=== PATIENT | female | born 1940 | race Caucasian/White ===

== ENCOUNTER 2016-10-05 12:46 | Inpatient (IN) | payer OTHER, MEDICARE ==
[2016-10-05] MEDS ORDERED: ASPIRIN 81 MG CHEWABLE TABLETS PO ONE (13:01)
[2016-10-05] MEDS ORDERED: ASPIRIN 81 MG CHEWABLE TABLETS ONE (13:23)
[2016-10-05 13:34] LABS: BASOPHIL 0.4 % (0-2.0); EOSINOPHIL 0.4 % (0-4.5); MCH 29.8 pg (25.7-33.7); MCHC 32.6 g/dl (32.0-36.0); MEAN CELL VOLUME 91.5 fl (80-96); MEAN PLT VOLUME 8.4 fl (7.5-11.1); NEUTROPHILS 60.1 % (42.8-82.8); PLATELET COUNT 169 K/MM3 (134-434); RDW 13.1 % (11.6-15.6); WHITE BLOOD COUNT 3.5 K/mm3 (4.0-10.0)
--- NOTE | 2016-10-05 13:46 | PDOC ---
History of Present Illness - General History Source: Patient Exam Limitations: No Limitations - History of Present Illness Initial Comments: 10/05/16 13:55 The patient is a 75 year old female, with a significant past medical history of hypertriglyceridemia who presents to the emergency department with chest pain, dizziness, productive cough for the past week. She reports having a tightness and pressure in her chest that is constant. She reports having SOB with any exertion or with much activity. Patient was sent here by Dr. Mixon, PCP, after an abnormal EKG. She ranks her pain a 6/10 in pain intensity. She reports having a recently ECHO. She denies shortness of breath. She denies fever, chills , headache and dizziness. She denies nausea, vomit, diarrhea and constipation. Allergies: NKA Social history: Former smoker. PCP: CARDIO: <Joo Vences - Last Filed: 10/05/16 14:07> - General History Source: Patient Exam Limitations: No Limitations <Amy Jones - Last Filed: 10/05/16 14:08> - General Chief Complaint: Chest Pain Stated Complaint: PCP REFERRED Time Seen by Provider: 10/05/16 13:00 Past History <Joo Vences - Last Filed: 10/05/16 14:07> - Past Medical History Anemia: No Asthma: No Cancer: No Cardiac Disorders: Yes (CAD) CVA: No COPD: No CHF: No Dementia: No Diabetes: No GI Disorders: No Disorders: No HTN: Yes Hypercholesterolemia: No Liver Disease: No Seizures: No Thyroid Disease: Yes - Surgical History Abdominal Surgery: No Appendectomy: No Cardiac Surgery: No Cholecystectomy: Yes Lung Surgery: No Neurologic Surgery: No Orthopedic Surgery: No - Psycho/Social/Smoking Cessation Hx Anxiety: No Suicidal Ideation: No Smoking History: Former smoker Have you smoked in the past 12 months: No If you are a former smoker, when did you quit?: 30 yrs ago Information on smoking cessation initiated: No Hx Alcohol Use: No Drug/Substance Use Hx: No Substance Use Type: None Hx Substance Use Treatment: No <Amy Jones - Last Filed: 10/05/16 14:08> - Past Medical History Allergies/Adverse Reactions: Allergies Allergy/AdvReac Type Severity Reaction Status Date / Time No Known Allergies Allergy Verified 10/05/16 12:50 Home Medications: Ambulatory Orders Levothyroxine [Synthroid -] 75 mcg PO ASDIR 12/05/12 Nebivolol HCl [Bystolic] 2.5 mg PO DAILY 12/05/12 Valsartan [Diovan] 40 mg PO DAILY 12/05/12 Levothyroxine [Synthroid -] 88 mcg PO ASDIR 10/05/16 Rosuvastatin [Crestor -] 5 mg PO DAILY 10/05/16 Review of Systems - Review of Systems Able to Perform ROS?: Yes Comments:: 10/05/16 13:55 GENERAL/CONSTITUTIONAL: No: fever, chills, weakness, loss of appetite. HEAD, EYES, EARS, NOSE AND THROAT: No: change in vision, ear pain, discharge, sore throat, throat swelling. CARDIOVASCULAR: Yes: chest pain, lightheadedness No: palpitations, syncope RESPIRATORY: Yes: cough and SOB. No: wheezing, hemoptysis, stridor. GASTROINTESTINAL: No: nausea, vomiting, diarrhea, abdominal cramping, rectal bleeding, constipation. GENITOURINARY: No: dysuria, hematuria, frequency, urgency, flank pain. MUSCULOSKELETAL: No: back pain, neck pain, joint pain, muscle swelling or pain SKIN : No: lesions, pallor, rash or easy bruising. NEUROLOGIC: No: headache, vertigo, paresthesias, weakness ENDOCRINE: No: unexplained weight gain or loss HEMATOLOGIC/LYMPHATIC: No: anemia, easy bleeding, swelling nodes. <Joo Vences - Last Filed: 10/05/16 14:07> *Physical Exam - Vital Signs Last Vital Signs Temp Pulse Resp BP Pulse Ox 98.3 F 84 17 122/85 96 10/05/16 12:51 10/05/16 13:34 10/05/16 13:34 10/05/16 13:34 10/05/16 13:34 - Physical Exam Comments: 10/05/16 14:07 GENERAL: The patient is in no acute distress. HEAD: Normal with no signs of trauma. EYES: PERRLA, EOMI, sclera anicteric, conjunctiva clear. ENT: Ears normal, nares patent, oropharynx clear without exudates. Moist mucous membranes. NECK: Normal range of motion, supple without lymphadenopathy, JVD, or masses. LUNGS: Breath sounds equal, clear to auscultation bilaterally. No wheezes, and no crackles. HEART: Regular rate and rhythm, normal S1 and S2 without murmur, rub or gallop. ABDOMEN: Soft, nontender, normoactive bowel sounds. No guarding, no rebound. No masses palpable. EXTREMITIES: Normal range of motion, no edema. No clubbing or cyanosis. No erythema, or tenderness. NEUROLOGICAL: Cranial nerves II through XII grossly intact. Normal speech. No focal neurological deficits. MUSCULOSKELETAL: Back non-tender to palpation, no CVA tenderness SKIN: Warm, Dry, normal turgor, no rashes or lesions noted. <Joo Vences - Last Filed: 10/05/16 14:07> - Vital Signs Last Vital Signs Temp Pulse Resp BP Pulse Ox 98.3 F 84 17 122/85 96 10/05/16 12:51 10/05/16 13:34 10/05/16 13:34 10/05/16 13:34 10/05/16 13:34 <Amy Jones - Last Filed: 10/05/16 14:08> Heart Score/ECG Review #1 ECG reviewed & interpreted by me at: 14:06 10/05/16 14:06 Twelve-lead EKG was performed and reviewed by me. There is normal sinus rhythm with a normal rate of 84bpm. The axis is normal. The intervals are normal. ST depressions v2-v5, T wave inversions v2-v5 <Amy Jones - Last Filed: 10/05/16 14:08> ED Treatment Course - LABORATORY CBC & Chemistry Diagram: 10/05/16 13:20 10/05/16 13:20 - ADDITIONAL ORDERS Additional order review: 10/05/16 13:20 RBC 4.91 MCV 91.5 MCHC 32.6 RDW 13.1 MPV 8.4 Neutrophils % 60.1 Lymphocytes % 29.2 Monocytes % 9.9 Eosinophils % 0.4 Basophils % 0.4 - Medications Given in the ED: ED Medications Discontinued Medications Generic Name Dose Route Start Last Admin Trade Name Freq PRN Reason Stop Dose Admin Aspirin 162 mg 10/05/16 13:01 10/05/16 13:26 Asa - PO 10/05/16 13:02 Not Given ONCE ONE <Joo Vences - Last Filed: 10/05/16 14:07> - LABORATORY CBC & Chemistry Diagram: 10/05/16 13:20 10/05/16 13:20 - ADDITIONAL ORDERS Additional order review: 10/05/16 13:20 RBC 4.91 MCV 91.5 MCHC 32.6 RDW 13.1 MPV 8.4 Neutrophils % 60.1 Lymphocytes % 29.2 Monocytes % 9.9 Eosinophils % 0.4 Basophils % 0.4 - RADIOLOGY Radiology Studies Ordered: Category Date Time Status CHEST X-RAY PORTABLE* [RAD] Stat Radiology 10/05/16 13:01 Taken - Medications Given in the ED: ED Medications Discontinued Medications Generic Name Dose Route Start Last Admin Trade Name Freq PRN Reason Stop Dose Admin Aspirin 162 mg 10/05/16 13:01 10/05/16 13:26 Asa - PO 10/05/16 13:02 Not Given ONCE ONE <Amy Jones - Last Filed: 10/05/16 14:08> Medical Decision Making - Medical Decision Making 10/05/16 13:46 A portion of this note was documented by scribe services under my direction. I have reviewed the details of the note, within reason, and agree with the documentation with the following case summary and management plan written by me. Nursing documentation reviewed and incorporated into medical decision making 10/05/16 14:02 This is a 75-year-old female with a history of hyperlipidemia who presents to the emergency department from her primary care physician's office due to EKG changes. Patient states for the past week she has had intermittent chest discomfort which she describes as pressure/tightness. Currently she is chest pain-free. No recent travel. No prior episodes like this. She is followed by Dr. Bryant, had a cardiac work up either in July or August which she states was normal. Differential includes cardiac ischemia, pe, asthma exacerbation, pneumonia, pneumothorax, pleural effusion, costochondritis, pericarditis, GERD. 10/05/16 14:04 Laboratory Tests 10/05/16 10/05/16 10/05/16 13:20 13:20 13:20 WBC 3.5 L Hgb 14.6 Hct 44.9 Plt Count 169 INR 1.09 BUN 21 H Creatinine 0.6 Creatine Kinase 43 Troponin I < 0.02 Chest x-ray demonstrates mild congestive changes Currently no chest pain Will Admit to Tele EKG concerning Call placed to Dr richardson Clinical impression: unstable angina 10/05/16 14:08 10/05/16 14:08 <Amy Jones - Last Filed: 10/05/16 14:08> *DC/Admit/Observation/Transfer - Attestations Scribe Attestion: 10/05/16 13:56 Documentation prepared by Joo Vences, acting as biomedical manager for Amy Jones MD. <Joo Vences - Last Filed: 10/05/16 14:07> - Discharge Dispostion Admit: Yes <Amy Jones - Last Filed: 10/05/16 14:08> Diagnosis at time of Disposition: Angina at rest - Discharge Dispostion Condition at time of disposition: Stable - Referrals Referrals: Nabil Mixon MD [Primary Care Provider] -
[2016-10-05 13:50] LABS: INR 1.09 (0.82-1.09)
[2016-10-05 13:55] LABS: ALBUMIN 3.6 g/dl (3.4-5.0); ANION GAP 10 (8-16); BILIRUBIN,TOTAL 0.3 mg/dL (0.2-1.0); CALCIUM 8.6 mg/dL (8.5-10.1); CO2 31 mmol/L (21-32); CREATININE 0.6 mg/dL (0.55-1.02); GLUCOSE,RANDOM 119 mg/dL (74-106); SGOT/AST 27 U/L (15-37); SGPT/ALT 42 U/L (12-78); TOT PROT 6.9 g/dl (6.4-8.2)
[2016-10-05 13:58] LABS: ALK PHOS 97 U/L (45-117); TROPONIN I < 0.02 ng/ml (0.00-0.05)
--- NOTE | 2016-10-05 15:46 | CON.CARD ---
Consult Consult Specialty:: Cardiology Referred by:: Alice Jones Reason for Consultation:: Chest pain - History of Present Illness Chief Complaint: Chest pain History of Present Illness: The patient is a 75 year old female, with a significant past medical history of hypertriglyceridemia, MVP with MR, chest pain syndrome, hypothyroidism who presented to the emergency department with exertional chest pain, dizziness, fatigue productive cough and decreased exercise over the past week. She reports near without true syncope, palpitations, orthopnea, PND or LE edema. Allergies: NKA Social history: Former smoker. PCP: CARDIO: - History Source History Provided By: Patient Limitations to Obtaining History: No Limitations - Past Medical History Cardio/Vascular: Yes: HTN, Hyperlipdemia, Mitral Insufficiency Gastrointestinal: Yes: Constipation Endocrine: Yes: Hypothyroidism - Alcohol/Substance Use Hx Alcohol Use: No - Smoking History Smoking history: Former smoker Have you smoked in the past 12 months: No If you are a former smoker, when did you quit?: 30 yrs ago Home Medications - Allergies Allergies/Adverse Reactions: Allergies Allergy/AdvReac Type Severity Reaction Status Date / Time No Known Allergies Allergy Verified 10/05/16 12:50 - Home Medications Home Medications: Ambulatory Orders Levothyroxine [Synthroid -] 75 mcg PO ASDIR 12/05/12 Nebivolol HCl [Bystolic] 2.5 mg PO DAILY 12/05/12 Valsartan [Diovan] 40 mg PO DAILY 12/05/12 Levothyroxine [Synthroid -] 88 mcg PO ASDIR 10/05/16 Rosuvastatin [Crestor -] 5 mg PO DAILY 10/05/16 Review of Systems - Review of Systems Cardiovascular: reports: Chest Pain, Shortness of Breath Respiratory: reports: Cough - Risk Factors Known Risk Factors: Yes: Age, Hypercholesterolemia, Hypertension Vital Signs: Vital Signs Temperature 98.3 F 10/05/16 12:51 Pulse Rate 84 10/05/16 13:34 Respiratory Rate 17 10/05/16 13:34 Blood Pressure 122/85 10/05/16 13:34 O2 Sat by Pulse Oximetry (%) 96 10/05/16 13:34 Constitutional: Yes: No Distress, Calm Neck: Yes: Supple Respiratory: Yes: Regular, CTA Bilaterally Gastrointestinal: Yes: Normal Bowel Sounds, Soft Cardiovascular: Yes: Regular Rate and Rhythm JVD: No Carotid Bruit: No Heart Sounds: Yes: S1, S2 Murmur: Yes: Systolic Murmur, Grade 1 Edema: No - Other Data Labs, Other Data: INR, PTT INR 1.09 (0.82-1.09) 10/05/16 13:[address] changes similar to previous Echo: Report Reviewed Ejection Fraction %: LVEF > or = 40 % Imaging - Results Chest X-ray: Report Reviewed (NAD) Problem List - Problems (1) Progressive angina Code(s): I20.0 - UNSTABLE ANGINA (2) Mitral valve prolapse syndrome Code(s): I34.1 - NONRHEUMATIC MITRAL (VALVE) PROLAPSE (3) Mitral regurgitation Code(s): I34.0 - NONRHEUMATIC MITRAL (VALVE) INSUFFICIENCY Qualifiers: Cardiac valve disease etiology: nonrheumatic Qualified Code(s): I34.0 - Nonrheumatic mitral (valve) insufficiency (4) Hyperlipidemia Code(s): E78.5 - HYPERLIPIDEMIA, UNSPECIFIED Qualifiers: Hyperlipidemia type: pure hypercholesterolemia Qualified Code(s): E78.0 - Pure hypercholesterolemia (5) Hypothyroidism Code(s): E03.9 - HYPOTHYROIDISM, UNSPECIFIED Qualifiers: Hypothyroidism type: unspecified Qualified Code(s): E03.9 - Hypothyroidism, unspecified Assessment/Plan 08/31/2016 Echo: Normal LV szie and fxn. mod-severe MR, mild-mod TR, RVSP 30 mmHg 12/14/2015 No ischemia with submaximal ETT 82% MPHR, Normal LVEF 1. Chest pain and dyspnea on exertion r/o ischemia 2. MV prolapse with mod-severe MR 3. Hyperlipidemia 4. Hypothyroidism 5. Low vit D levels P:1. Ruling out for [place] 2. Continue Bystolic 2.5 qd, Diovan 40 qd, Crestor 5 qd, vit D repletion 3. Persantine Myoview r/o ischemia, further recommendations to follow 4. Thank you for consultative opportunity
[2016-10-05] MEDS ORDERED: ACETAMINOPHEN 325 MG TABLET (FP) PO PRN (16:54)
[2016-10-05] MEDS: NEBIVOLOL 2.5 MG TABLET (FP) PO SCH (18:45)
[2016-10-05 19:37] LABS: CHOLESTEROL 107 mg/dL (50-200)
[2016-10-05 19:39] LABS: TROPONIN I < 0.02 ng/ml (0.00-0.05)
[2016-10-05 19:40] LABS: LDL CHOLESTEROL (ONLY SJRH) 62 mg/dL (5-100)
[2016-10-05] MEDS: ROSUVASTATIN CA 5 MG TABLET (FP) PO SCH (22:53)
[2016-10-05 23:35] VITALS: BMI 27.3
[2016-10-06] MEDS: LEVOTHYROXINE NA 88 MCG TABLET (FP) PO SCH (06:04)
[2016-10-06 07:36] LABS: BASOPHIL 0.3 % (0-2.0); EOSINOPHIL 0.8 % (0-4.5); MCH 30.5 pg (25.7-33.7); MCHC 33.9 g/dl (32.0-36.0); MEAN CELL VOLUME 89.9 fl (80-96); MEAN PLT VOLUME 9.1 fl (7.5-11.1); NEUTROPHILS 47.2 % (42.8-82.8); PLATELET COUNT 156 K/MM3 (134-434); RDW 12.6 % (11.6-15.6); WHITE BLOOD COUNT 3.9 K/mm3 (4.0-10.0)
[2016-10-06 08:07] LABS: ALBUMIN 3.3 g/dl (3.4-5.0); ANION GAP 10 (8-16); CALCIUM 8.6 mg/dL (8.5-10.1); CO2 26 mmol/L (21-32); GLUCOSE,RANDOM 95 mg/dL (74-106)
[2016-10-06 08:20] LABS: ALK PHOS 91 U/L (45-117); BILIRUBIN,TOTAL 0.3 mg/dL (0.2-1.0); CREATININE 0.5 mg/dL (0.55-1.02); SGOT/AST 29 U/L (15-37); SGPT/ALT 42 U/L (12-78); THYROID STIMULATING HORMONE 2.18 uIU/ml (0.358-3.74); TOT PROT 6.2 g/dl (6.4-8.2); TROPONIN I < 0.02 ng/ml (0.00-0.05)
[2016-10-06] MEDS ORDERED: PT OWN MED DRAWER 7, Y5N ONE (08:30)
[2016-10-06] MEDS: VALSARTAN 40 MG TABLET (FP) PO SCH (09:21)
--- NOTE | 2016-10-06 10:35 | PN ---
Progress Note (short form) - Note Progress Note: Chief Complaint: Events noted, notes reviewed, denies any further Chest pain History of Present Illness: Seen and examined on telemetry. Events noted, notes reviewed, denies any further Chest pain Echocardiography dated 08/31/2016 revealed Normal LV size and function, moderate- severe MR, mild-moderate TR with RVSP 30 mmHg MPI study dated 12/14/2015 revealed No ischemia with sub-maximal ETT 82% MPTHR Considering patient's clinical presentation and prior negative MPI study would recommend early C& coronary angiography, risk, benefits and alternatives were reviewed in detail with the patient and the procedure is to be performed at [facility] this coming week Medications: Current Medications Acetaminophen (Tylenol -) 650 mg PO Q4H PRN PRN Reason: FEVER OR PAIN Levothyroxine Sodium (Synthroid -) 88 mcg PO DAILY@0700 [facility] Last Admin: 10/06/16 06:04 Dose: 88 mcg Nebivolol (Bystolic -) 2.5 mg PO DAILY [facility] Last Admin: 10/05/16 18:45 Dose: Not Given Rosuvastatin Calcium (Crestor -) 5 mg PO HS [facility] Last Admin: 10/05/16 22:53 Dose: 5 mg Valsartan (Diovan -) 40 mg PO DAILY [facility] Last Admin: 10/06/16 09:21 Dose: 40 mg Review of Systems Cardiovascular: As noted above Respiratory: denies: Cough or Sputum Production Gastrointestinal: denies: Nausea, Vomiting, Diarrhea, Constipation or Abdominal Discomfort Musculoskeletal: As noted above Endocrine: No Symptoms Reported Vital Signs: Last Vital Signs Temp Pulse Resp BP Pulse Ox 97.9 F 76 18 114/68 95 10/06/16 09:40 10/06/16 09:40 10/06/16 09:40 10/06/16 09:40 10/06/16 09:40 Constitutional: No Distress, Calm Neck: Supple Negative JVD no Bruit Respiratory: Clear to A&P Bilaterally Cardiovascular: S1 S2 Regular Rate and Rhythm Grade 1-2/6 SM Apical Gastrointestinal: Soft Benign Normal Bowel Sounds Ext: No Edema Labs: Troponin, BNP 10/05/16 10/05/16 10/06/16 13:20 18:40 06:10 Troponin I < 0.02 < 0.02 < 0.02 B-Natriuretic Peptide 50.70 CBC, BMP 10/06/16 06:10 10/06/16 06:10 Assessment/Plan ASSESSMENT: 1. Chest pain syndrome related to CAD progressive angina pectoris 2. Probable diastolic LV dysfunction with class 0 NYHA classification LV failure 3. MV prolapse with moderate-severe MR 4. Hyperlipidemia 5. Hypothyroidism PLAN: 1. Continue Bystolic 2. Continue Diovan 3. Continue Crestor 4. Add ASA 5. Add Ranexa, pending completion of evaluation 6. To proceed with [facility] coronary angiography as outlined above Govind Bryant MD
--- NOTE | 2016-10-06 12:18 | PN ---
Progress Note (short form) - Note Progress Note: PULMONARY CONSULTATION DICTATED 10/06/16 IMP CHEST PAIN SYNDROME LIKELY PROGRESSIVE ANGINA DYSPNEA SECONDARY TO ABOVE VALVULAR HD HYPOTHYROIDISM HLD PLAN CARDIAC MEDS PER CARDIOLOGY CARDIAC W/U IN PROGRESS NASAL O2 PFTS OUTPATIENT DR TRISTAN Problem List - Problems (1) Angina at rest Code(s): I20.8 - OTHER FORMS OF ANGINA PECTORIS (2) Hyperlipidemia Code(s): E78.5 - HYPERLIPIDEMIA, UNSPECIFIED Qualifiers: Hyperlipidemia type: pure hypercholesterolemia Qualified Code(s): E78.0 - Pure hypercholesterolemia (3) Hypothyroidism Code(s): E03.9 - HYPOTHYROIDISM, UNSPECIFIED Qualifiers: Hypothyroidism type: unspecified Qualified Code(s): E03.9 - Hypothyroidism, unspecified (4) Mitral regurgitation Code(s): I34.0 - NONRHEUMATIC MITRAL (VALVE) INSUFFICIENCY Qualifiers: Cardiac valve disease etiology: nonrheumatic Qualified Code(s): I34.0 - Nonrheumatic mitral (valve) insufficiency (5) Mitral valve prolapse syndrome Code(s): I34.1 - NONRHEUMATIC MITRAL (VALVE) PROLAPSE (6) Progressive angina Code(s): I20.0 - UNSTABLE ANGINA
[2016-10-06] MEDS: ASPIRIN COATED 81 MG TABLET.EC PO SCH (13:11)
[2016-10-06] MEDS: RANOLAZINE E.R. 500 MG TABLET (FP) PO SCH ×2 (13:11→21:05)
[2016-10-06] MEDS: NEBIVOLOL 2.5 MG TABLET (FP) PO SCH (13:11)
--- NOTE | 2016-10-06 13:12 | EKG ---
Test Reason : Blood Pressure : / mmHG Vent. Rate : 068 BPM Atrial Rate : 068 BPM P-R Int : 148 ms QRS Dur : 082 ms QT Int : 422 ms P-R-T Axes : 054 069 083 degrees QTc Int : 448 ms NORMAL SINUS RHYTHM ABNORMAL ECG WHEN COMPARED WITH ECG OF 05-OCT-2016 13:05, T WAVE INVERSION NO LONGER EVIDENT IN INFERIOR LEADS Confirmed by MERCED ANGELES, BHARGAVI ([id number]) on 10/06/2016 1:12:43 PM Referred By: Laurel ODEN Confirmed By:BHARGAVI BLACKWOOD MD
--- NOTE | 2016-10-06 13:23 | EKG ---
Test Reason : Blood Pressure : / mmHG Vent. Rate : 084 BPM Atrial Rate : 084 BPM P-R Int : 138 ms QRS Dur : 080 ms QT Int : 376 ms P-R-T Axes : 056 060 013 degrees QTc Int : 444 ms NORMAL SINUS RHYTHM ABNORMAL ECG WHEN COMPARED WITH ECG OF 15-JAN-2003 11:36, NO SIGNIFICANT CHANGE WAS FOUND Confirmed by BHARGAVI BLACKWOOD MD ([id number]) on 10/06/2016 1:23:08 PM Referred By: Confirmed By:BHARGAVI BLACKWOOD MD
--- NOTE | 2016-10-06 13:44 | CONS ---
DATE OF CONSULTATION: 10/06/2016 REFERRING PHYSICIAN: Nabil Mixon MD HISTORY OF PRESENT ILLNESS: The patient is a 75-year-old white female with a past medical history of hypertriglyceridemia, mitral valve prolapse, mitral regurgitation, chest pain and hypothyroidism. She was admitted to [facility] with complaints of chest pain, shortness of breath and dizziness. The patient states her symptoms started approximately a week and a half ago. She said that at that time, she felt like she had the flux. She felt weak and noticed that when she was walking, she got short of breath and had chest pressure. She states that the pressure occurred at rest, as well as with exertion. She started noticing progressive dyspnea on exertion. She denied any nausea, vomiting or diaphoresis, denied any radiation of the chest pain to the left arm and had no chest pain radiation. She denied any fevers or chills. She denied any hemoptysis. She presented to the emergency room with the above. In the ER, she was evaluated by Dr. Scruggs for cardiology consultation. Of note, the patient recently underwent a cardiac workup which apparently revealed a normal echo, normal LV size and function, severe mitral regurgitation, mild to moderate tricuspid regurgitation and mild pulmonary hypertension with an RVSP of 30. No ischemia noted on the exercise tolerance test. SOCIAL HISTORY: The patient has a history of tobacco use but quit greater than 30 years ago. There was no occupational exposure. She was born in [place] and moved to the [place] many years ago. PAST MEDICAL HISTORY: Chest pain, mitral valve prolapse, mitral regurgitation, tricuspid regurgitation, hypertriglyceridemia, hypothyroidism. REVIEW OF SYSTEMS: No orthopnea, no PND. Positive shortness of breath. Positive chest pressure. No nausea, no vomiting, no hemoptysis. Positive cough. No wheeze. CURRENT MEDICATIONS: Tylenol, Diovan, Bystolic, Ranexa, Crestor, Ecotrin and Synthroid. PHYSICAL EXAMINATION: General: Patient is a well-developed, well-nourished female, awake, alert, in no acute distress. Vitals: She is afebrile. Blood pressure is 114/68, respiratory rate is 18, O2 saturation is 95% on room air. HEENT: Normocephalic, atraumatic. Neck: Supple. Heart: Regular with S1, S2. Chest: Clear. Abdomen: Soft, bowel sounds positive. Extremities: No cyanosis or edema. LABORATORY STUDIES: WBC is 3.9, hemoglobin 14, hematocrit 41.2 with a platelet count of 156,000. BUN 17, creatinine 0.5, INR is 1.09. CTA of the chest showed no evidence of PE. IMPRESSION: 1. Chest pain and dyspnea, most likely secondary to cardiac, unstable and progressive angina. 2. Mitral valvular heart disease. 3. Hyperlipidemia. 4. Hypothyroidism. PLAN: Continue cardiac medications as per Cardiology. Agree with consideration of cardiac catheterization as per Cardiology. Nasal O2 p.r.n., p.o.q. as outpatient. SAMMY TRISTAN M.D. [id number]
--- NOTE | 2016-10-06 14:47 | HP ---
Admitting History and Physical - Primary Care Physician PCP: Roland Earl - Admission Chief Complaint: CHEST PAIN History of Present Illness: The patient is a 75 year old female, with a significant past medical history of hypertriglyceridemia who presents to the emergency department with chest pain, dizziness, productive cough for the past week. She reports having a tightness and pressure in her chest that is constant. She reports having SOB with any exertion or with much activity. Patient was sent here by Dr. Mixon, PCP, after an abnormal EKG. She ranks her pain a 6/10 in pain intensity. She reports having a recently ECHO. She denies shortness of breath. She denies fever, chills , headache and dizziness. She denies nausea, vomit, diarrhea and constipation. Limitations to Obtaining History: No Limitations - Past Medical History Cardiovascular: Yes: HTN, Hyperlipdemia, Mitral Insufficiency Gastrointestinal: Yes: Constipation ...: No Endocrine: Yes: Hypothyroidism - Smoking History Smoking history: Former smoker Have you smoked in the past 12 months: No If you are a former smoker, when did you quit?: 30 yrs ago - Alcohol/Substance Use Hx Alcohol Use: No Home Medications - Allergies Allergies/Adverse Reactions: Allergies Allergy/AdvReac Type Severity Reaction Status Date / Time No Known Allergies Allergy Verified 10/05/16 12:50 - Home Medications Home Medications: Ambulatory Orders Levothyroxine [Synthroid -] 75 mcg PO ASDIR 12/05/12 Nebivolol HCl [Bystolic] 2.5 mg PO DAILY 12/05/12 Valsartan [Diovan] 40 mg PO DAILY 12/05/12 Levothyroxine [Synthroid -] 88 mcg PO ASDIR 10/05/16 Rosuvastatin [Crestor -] 5 mg PO DAILY 10/05/16 Review of Systems - Review of Systems Constitutional: reports: No Symptoms Eyes: reports: No Symptoms HENT: reports: No Symptoms Neck: reports: No Symptoms Cardiovascular: reports: Chest Pain Respiratory: reports: SOB Gastrointestinal: reports: No Symptoms Genitourinary: reports: No Symptoms Breasts: reports: No Symptoms Reported Musculoskeletal: reports: No Symptoms Integumentary: reports: No Symptoms Neurological: reports: No Symptoms Endocrine: reports: No Symptoms Hematology/Lymphatic: reports: No Symptoms Psychiatric: reports: No Symptoms Physical Examination Vital Signs: Vital Signs Temperature 97.9 F 10/06/16 09:40 Pulse Rate 76 10/06/16 09:40 Respiratory Rate 18 10/06/16 09:40 Blood Pressure 114/68 10/06/16 09:40 O2 Sat by Pulse Oximetry (%) 95 10/06/16 09:40 Constitutional: Yes: Mild Distress Eyes: Yes: WNL HENT: Yes: WNL Neck: Yes: WNL Cardiovascular: Yes: WNL Respiratory: Yes: WNL Gastrointestinal: Yes: WNL Renal/: Yes: WNL Musculoskeletal: Yes: WNL Extremities: Yes: WNL Edema: No Peripheral Pulses WNL: Yes Integumentary: Yes: WNL Wound/Incision: Yes: Clean/Dry Neurological: Yes: WNL ...Motor Strength: WNL Psychiatric: Yes: WNL Labs: CBC, BMP 10/06/16 06:10 10/06/16 06:10 Problem List - Problems (1) Angina at rest Code(s): I20.8 - OTHER FORMS OF ANGINA PECTORIS (2) Hyperlipidemia Code(s): E78.5 - HYPERLIPIDEMIA, UNSPECIFIED Qualifiers: Hyperlipidemia type: pure hypercholesterolemia Qualified Code(s): E78.0 - Pure hypercholesterolemia (3) Hypothyroidism Code(s): E03.9 - HYPOTHYROIDISM, UNSPECIFIED Qualifiers: Hypothyroidism type: unspecified Qualified Code(s): E03.9 - Hypothyroidism, unspecified (4) Mitral regurgitation Code(s): I34.0 - NONRHEUMATIC MITRAL (VALVE) INSUFFICIENCY Qualifiers: Cardiac valve disease etiology: nonrheumatic Qualified Code(s): I34.0 - Nonrheumatic mitral (valve) insufficiency (5) Progressive angina Code(s): I20.0 - UNSTABLE ANGINA Assessment/Plan CARDIAC WORKUP CARDIAC ENZYMES TELEMETRY PULM EVAL 02 SUPPORT ECHO STRESS TEST
[2016-10-06] MEDS: ROSUVASTATIN CA 5 MG TABLET (FP) PO SCH (21:06)
[2016-10-07] MEDS: LEVOTHYROXINE NA 88 MCG TABLET (FP) PO SCH (06:06)
--- NOTE | 2016-10-07 09:16 | PN ---
Progress Note (short form) - Note Progress Note: Chief Complaint: Events noted, notes reviewed, denies any further Chest pain, denies any dyspnea History of Present Illness: Seen and examined on telemetry. Events noted, notes reviewed, denies any further Chest pain, denies any dyspnea As outlined in yesterday's note considering patient's clinical presentation and prior negative MPI study would recommend early LHC& coronary angiography, procedure is to be performed at [facility] this coming week/probably Saturday Echocardiography dated 08/31/2016 revealed Normal LV size and function, moderate- severe MR, mild-moderate TR with RVSP 30 mmHg MPI study dated 12/14/2015 revealed No ischemia with sub-maximal ETT 82% MPTHR Medications: Current Medications Acetaminophen (Tylenol -) 650 mg PO Q4H PRN PRN Reason: FEVER OR PAIN Aspirin (Ecotrin -) 81 mg PO DAILY [facility] Last Admin: 10/06/16 13:11 Dose: 81 mg Levothyroxine Sodium (Synthroid -) 88 mcg PO DAILY@0700 [facility] Last Admin: 10/07/16 06:06 Dose: 88 mcg Nebivolol (Bystolic -) 2.5 mg PO DAILY [facility] Last Admin: 10/06/16 13:11 Dose: 2.5 mg Ranolazine (Ranexa -) 500 mg PO BID [facility] Last Admin: 10/06/16 21:05 Dose: 500 mg Rosuvastatin Calcium (Crestor -) 5 mg PO HS [facility] Last Admin: 10/06/16 21:06 Dose: 5 mg Valsartan (Diovan -) 40 mg PO DAILY [facility] Last Admin: 10/06/16 09:21 Dose: 40 mg Review of Systems Cardiovascular: As noted above Respiratory: denies: Cough or Sputum Production Gastrointestinal: denies: Nausea, Vomiting, Diarrhea, Constipation or Abdominal Discomfort Musculoskeletal: No Symptoms Reported Endocrine: No Symptoms Reported Vital Signs: Last Vital Signs Temp Pulse Resp BP Pulse Ox 98.3 F 71 20 111/61 96 10/07/16 06:00 10/07/16 06:00 10/07/16 06:00 10/07/16 06:00 10/06/16 21:00 Constitutional: No Distress, Calm Neck: Supple Negative JVD no Bruit Respiratory: Clear to A&P Bilaterally Cardiovascular: S1 S2 Regular Rate and Rhythm Grade 1-2/6 SM Apical Gastrointestinal: Soft Benign Normal Bowel Sounds Ext: No Edema Labs: CBC, BMP 10/06/16 06:10 10/06/16 06:10 Assessment/Plan ASSESSMENT: 1. Chest pain syndrome related to CAD progressive angina pectoris 2. Probable diastolic LV dysfunction with class 0 NYHA classification LV failure 3. MV prolapse with moderate-severe MR 4. Hyperlipidemia 5. Hypothyroidism PLAN: 1. Continue Bystolic 2. Continue Diovan 3. Continue Crestor 4. Continue Ranexa 5. Continue ASA 6. As outlined above to proceed with [facility]& coronary angiography Govind Bryant MD
[2016-10-07] MEDS ORDERED: PT OWN MED DRAWER 7, Y5N ONE (09:31)
[2016-10-07] MEDS: NEBIVOLOL 2.5 MG TABLET (FP) PO SCH (09:33)
[2016-10-07] MEDS: ASPIRIN COATED 81 MG TABLET.EC PO SCH (09:34)
[2016-10-07] MEDS: VALSARTAN 40 MG TABLET (FP) PO SCH (09:34)
[2016-10-07] MEDS: RANOLAZINE E.R. 500 MG TABLET (FP) PO SCH ×2 (09:35→21:33)
--- NOTE | 2016-10-07 11:31 | PN ---
Progress Note, Physician History of Present Illness: pulmonary alert,nad,-cp,+mild cough - Current Medication List Current Medications: Active Medications Acetaminophen (Tylenol -) 650 mg PO Q4H PRN PRN Reason: FEVER OR PAIN Aspirin (Ecotrin -) 81 mg PO DAILY [facility] Last Admin: 10/07/16 09:34 Dose: 81 mg Levothyroxine Sodium (Synthroid -) 88 mcg PO DAILY@0700 [facility] Last Admin: 10/07/16 06:06 Dose: 88 mcg Nebivolol (Bystolic -) 2.5 mg PO DAILY [facility] Last Admin: 10/07/16 09:33 Dose: 2.5 mg Ranolazine (Ranexa -) 500 mg PO BID [facility] Last Admin: 10/07/16 09:35 Dose: 500 mg Rosuvastatin Calcium (Crestor -) 5 mg PO HS [facility] Last Admin: 10/06/16 21:06 Dose: 5 mg Valsartan (Diovan -) 40 mg PO DAILY [facility] Last Admin: 10/07/16 09:34 Dose: 40 mg - Objective Vital Signs: Vital Signs Temperature 97.2 F L 10/07/16 10:00 Pulse Rate 75 10/07/16 10:00 Respiratory Rate 20 10/07/16 10:00 Blood Pressure 118/69 10/07/16 10:00 O2 Sat by Pulse Oximetry (%) 96 10/06/16 21:00 Constitutional: Yes: Well Nourished, Calm Eyes: Yes: WNL HENT: Yes: WNL Neck: Yes: WNL Cardiovascular: Yes: Regular Rate and Rhythm, S1, S2 Respiratory: Yes: CTA Bilaterally Gastrointestinal: Yes: Normal Bowel Sounds, Soft Extremities: Yes: WNL Edema: No Problem List - Problems (1) Angina at rest Code(s): I20.8 - OTHER FORMS OF ANGINA PECTORIS (2) Hyperlipidemia Code(s): E78.5 - HYPERLIPIDEMIA, UNSPECIFIED Qualifiers: Hyperlipidemia type: pure hypercholesterolemia Qualified Code(s): E78.0 - Pure hypercholesterolemia (3) Hypothyroidism Code(s): E03.9 - HYPOTHYROIDISM, UNSPECIFIED Qualifiers: Hypothyroidism type: unspecified Qualified Code(s): E03.9 - Hypothyroidism, unspecified (4) Mitral regurgitation Code(s): I34.0 - NONRHEUMATIC MITRAL (VALVE) INSUFFICIENCY Qualifiers: Cardiac valve disease etiology: nonrheumatic Qualified Code(s): I34.0 - Nonrheumatic mitral (valve) insufficiency (5) Mitral valve prolapse syndrome Code(s): I34.1 - NONRHEUMATIC MITRAL (VALVE) PROLAPSE (6) Progressive angina Code(s): I20.0 - UNSTABLE ANGINA Assessment/Plan IMP CHEST PAIN SYNDROME LIKELY PROGRESSIVE ANGINA DYSPNEA SECONDARY TO ABOVE VALVULAR HD HYPOTHYROIDISM HLD PLAN CARDIAC MEDS PER CARDIOLOGY W/U IN PROGRESS NASAL O2 PFTS OUTPATIENT Problem List - Problems (1) Angina at rest Code(s): I20.8 - OTHER FORMS OF ANGINA PECTORIS (2) Hyperlipidemia Code(s): E78.5 - HYPERLIPIDEMIA, UNSPECIFIED Qualifiers: Hyperlipidemia type: pure hypercholesterolemia Qualified Code(s): E78.0 - Pure hypercholesterolemia (3) Hypothyroidism Code(s): E03.9 - HYPOTHYROIDISM, UNSPECIFIED Qualifiers: Hypothyroidism type: unspecified Qualified Code(s): E03.9 - Hypothyroidism, unspecified (4) Mitral regurgitation Code(s): I34.0 - NONRHEUMATIC MITRAL (VALVE) INSUFFICIENCY Qualifiers: Cardiac valve disease etiology: nonrheumatic Qualified Code(s): I34.0 - Nonrheumatic mitral (valve) insufficiency (5) Mitral valve prolapse syndrome Code(s): I34.1 - NONRHEUMATIC MITRAL (VALVE) PROLAPSE (6) Progressive angina Code(s): I20.0 - UNSTABLE ANGINA
--- NOTE | 2016-10-07 12:17 | PN ---
Progress Note, Physician Chief Complaint: SLEEPING CHARTS REVIEWED - Current Medication List Current Medications: Active Medications Acetaminophen (Tylenol -) 650 mg PO Q4H PRN PRN Reason: FEVER OR PAIN Aspirin (Ecotrin -) 81 mg PO DAILY [facility] Last Admin: 10/07/16 09:34 Dose: 81 mg Levothyroxine Sodium (Synthroid -) 88 mcg PO DAILY@0700 [facility] Last Admin: 10/07/16 06:06 Dose: 88 mcg Nebivolol (Bystolic -) 2.5 mg PO DAILY [facility] Last Admin: 10/07/16 09:33 Dose: 2.5 mg Ranolazine (Ranexa -) 500 mg PO BID [facility] Last Admin: 10/07/16 09:35 Dose: 500 mg Rosuvastatin Calcium (Crestor -) 5 mg PO HS [facility] Last Admin: 10/06/16 21:06 Dose: 5 mg Valsartan (Diovan -) 40 mg PO DAILY [facility] Last Admin: 10/07/16 09:34 Dose: 40 mg - Objective Vital Signs: Vital Signs Temperature 97.2 F L 10/07/16 10:00 Pulse Rate 75 10/07/16 10:00 Respiratory Rate 20 10/07/16 10:00 Blood Pressure 118/69 10/07/16 10:00 O2 Sat by Pulse Oximetry (%) 96 10/06/16 21:00 Constitutional: Yes: No Distress Eyes: Yes: WNL HENT: Yes: WNL Neck: Yes: WNL Cardiovascular: Yes: WNL Respiratory: Yes: WNL Gastrointestinal: Yes: WNL Genitourinary: Yes: WNL Musculoskeletal: Yes: WNL Extremities: Yes: WNL Edema: No Peripheral Pulses WNL: Yes Integumentary: Yes: WNL Wound/Incision: Yes: Clean/Dry Neurological: Yes: WNL ...Motor Strength: WNL Psychiatric: Yes: WNL Labs: CBC, BMP 10/06/16 06:10 10/06/16 06:10 INR, PTT INR 1.09 (0.82-1.09) 10/05/16 13:20 Problem List - Problems (1) Angina at rest Code(s): I20.8 - OTHER FORMS OF ANGINA PECTORIS (2) Hyperlipidemia Code(s): E78.5 - HYPERLIPIDEMIA, UNSPECIFIED Qualifiers: Hyperlipidemia type: pure hypercholesterolemia Qualified Code(s): E78.0 - Pure hypercholesterolemia (3) Hypothyroidism Code(s): E03.9 - HYPOTHYROIDISM, UNSPECIFIED Qualifiers: Hypothyroidism type: unspecified Qualified Code(s): E03.9 - Hypothyroidism, unspecified (4) Mitral regurgitation Code(s): I34.0 - NONRHEUMATIC MITRAL (VALVE) INSUFFICIENCY Qualifiers: Cardiac valve disease etiology: nonrheumatic Qualified Code(s): I34.0 - Nonrheumatic mitral (valve) insufficiency (5) Progressive angina Code(s): I20.0 - UNSTABLE ANGINA Assessment/Plan CARDIAC WORKUP CARDIAC ENZYMES TELEMETRY PUL EVAL 02 SUPPORT CORONARY CATH AT [facility]
[2016-10-07] MEDS: ROSUVASTATIN CA 5 MG TABLET (FP) PO SCH (21:33)
[2016-10-07] MEDS: NYSTATIN 500,000 UNITS/5 ML SUSPENSION PO SCH (23:52)
[2016-10-08] MEDS: LEVOTHYROXINE NA 88 MCG TABLET (FP) PO SCH ×2 (06:10→09:05)
[2016-10-08] MEDS: NYSTATIN 500,000 UNITS/5 ML SUSPENSION PO SCH (06:10)
--- NOTE | 2016-10-08 08:27 | PN ---
Progress Note, Physician History of Present Illness: feels better c/o fatigue - Current Medication List Current Medications: Active Medications Acetaminophen (Tylenol -) 650 mg PO Q4H PRN PRN Reason: FEVER OR PAIN Aspirin (Ecotrin -) 81 mg PO DAILY [facility] Last Admin: 10/07/16 09:34 Dose: 81 mg Levothyroxine Sodium (Synthroid -) 88 mcg PO DAILY@0700 [facility] Last Admin: 10/08/16 06:10 Dose: Not Given Nebivolol (Bystolic -) 2.5 mg PO DAILY [facility] Last Admin: 10/07/16 09:33 Dose: 2.5 mg Nystatin (Nystatin Oral Suspension -) 500,000 units PO Q6HPO [facility] Last Admin: 10/08/16 06:10 Dose: Not Given Ranolazine (Ranexa -) 500 mg PO BID [facility] Last Admin: 10/07/16 21:33 Dose: 500 mg Rosuvastatin Calcium (Crestor -) 5 mg PO HS [facility] Last Admin: 10/07/16 21:33 Dose: 5 mg Valsartan (Diovan -) 40 mg PO DAILY [facility] Last Admin: 10/07/16 09:34 Dose: 40 mg - Objective Vital Signs: Vital Signs Temperature 98.2 F 10/08/16 06:00 Pulse Rate 76 10/08/16 06:00 Respiratory Rate 16 10/08/16 06:00 Blood Pressure 122/56 10/08/16 06:00 O2 Sat by Pulse Oximetry (%) 93 L 10/07/16 22:00 Cardiovascular: Yes: Regular Rate and Rhythm Respiratory: Yes: Regular, CTA Bilaterally Gastrointestinal: Yes: Normal Bowel Sounds, Soft Labs: CBC, BMP 10/06/16 06:10 10/06/16 06:10 INR, PTT INR 1.09 (0.82-1.09) 10/05/16 13:20 Problem List - Problems (1) Angina at rest Assessment/Plan: STRESS TEST NEG--CATH TODAY ASA/STATIN Code(s): I20.8 - OTHER FORMS OF ANGINA PECTORIS (2) Hypothyroidism Assessment/Plan: SAME MEDS Code(s): E03.9 - HYPOTHYROIDISM, UNSPECIFIED Qualifiers: Hypothyroidism type: unspecified Qualified Code(s): E03.9 - Hypothyroidism, unspecified (3) HTN (hypertension) Assessment/Plan: STABLE Code(s): I10 - ESSENTIAL (PRIMARY) HYPERTENSION
[2016-10-08] MEDS ORDERED: PT OWN MED DRAWER 7, Y5N ONE ×2 (08:40→09:02)
[2016-10-08] MEDS: VALSARTAN 40 MG TABLET (FP) PO SCH (09:05)
[2016-10-08] MEDS: NEBIVOLOL 2.5 MG TABLET (FP) PO SCH (09:05)
[2016-10-08] MEDS: ASPIRIN COATED 81 MG TABLET.EC PO SCH (09:05)
[2016-10-08] MEDS: RANOLAZINE E.R. 500 MG TABLET (FP) PO SCH (09:05)
[2016-10-08 09:45] VITALS: BP 137/74; PULSE 70; TEMP 97.9
--- NOTE | 2016-10-08 11:20 | PN ---
Progress Note, Physician History of Present Illness: Reports fatigue, denies exertional chest tightness or dyspnea. - Current Medication List Current Medications: Active Medications Acetaminophen (Tylenol -) 650 mg PO Q4H PRN PRN Reason: FEVER OR PAIN Aspirin (Ecotrin -) 81 mg PO DAILY [facility] Last Admin: 10/08/16 09:05 Dose: 81 mg Levothyroxine Sodium (Synthroid -) 88 mcg PO DAILY@0700 [facility] Last Admin: 10/08/16 09:05 Dose: 88 mcg Nebivolol (Bystolic -) 2.5 mg PO DAILY [facility] Last Admin: 10/08/16 09:05 Dose: 2.5 mg Nystatin (Nystatin Oral Suspension -) 500,000 units PO Q6HPO [facility] Last Admin: 10/08/16 06:10 Dose: Not Given Ranolazine (Ranexa -) 500 mg PO BID [facility] Last Admin: 10/08/16 09:05 Dose: 500 mg Rosuvastatin Calcium (Crestor -) 5 mg PO HS [facility] Last Admin: 10/07/16 21:33 Dose: 5 mg Valsartan (Diovan -) 40 mg PO DAILY [facility] Last Admin: 10/08/16 09:05 Dose: 40 mg - Objective Vital Signs: Vital Signs Temperature 97.9 F 10/08/16 09:00 Pulse Rate 70 10/08/16 09:00 Respiratory Rate 18 10/08/16 09:00 Blood Pressure 137/74 10/08/16 09:00 O2 Sat by Pulse Oximetry (%) 93 L 10/08/16 09:00 Constitutional: Yes: No Distress, Calm Neck: Yes: Supple Cardiovascular: Yes: Regular Rate and Rhythm, Murmur (2/6 SM) Respiratory: Yes: Regular, CTA Bilaterally Gastrointestinal: Yes: Normal Bowel Sounds, Soft Edema: No Labs: CBC, BMP 10/06/16 06:10 10/06/16 06:10 INR, PTT INR 1.09 (0.82-1.09) 10/05/16 13:20 Problem List - Problems (1) Progressive angina Code(s): I20.0 - UNSTABLE ANGINA (2) Mitral valve prolapse syndrome Code(s): I34.1 - NONRHEUMATIC MITRAL (VALVE) PROLAPSE (3) Mitral regurgitation Code(s): I34.0 - NONRHEUMATIC MITRAL (VALVE) INSUFFICIENCY Qualifiers: Cardiac valve disease etiology: nonrheumatic Qualified Code(s): I34.0 - Nonrheumatic mitral (valve) insufficiency (4) Hyperlipidemia Code(s): E78.5 - HYPERLIPIDEMIA, UNSPECIFIED Qualifiers: Hyperlipidemia type: pure hypercholesterolemia Qualified Code(s): E78.0 - Pure hypercholesterolemia (5) Hypothyroidism Code(s): E03.9 - HYPOTHYROIDISM, UNSPECIFIED Qualifiers: Hypothyroidism type: unspecified Qualified Code(s): E03.9 - Hypothyroidism, unspecified Assessment/Plan 08/31/2016 Echo: Normal LV szie and fxn. mod-severe MR, mild-mod TR, RVSP 30 mmHg 12/14/2015 No ischemia with submaximal ETT 82% MPHR, Normal LVEF 1. Chest pain and dyspnea on exertion r/o CAD 2. MV prolapse with mod-severe MR 3. Hyperlipidemia 4. Hypothyroidism 5. Low vit D levels P:1. Ruled out for [facility] 2. Continue ASA 81 qd, Bystolic 2.5 qd, Diovan 40 qd, Crestor 5 qd, Ranexa 500 bid, vit D repletion 3. Plan for LHC to r/o CAD, further recommendations to follow
== END 2016-10-08 11:38 | disposition short-term general hospital (02) | DRG 303 ==
LOC: JER 12:46 → JERBED 14:21 → J4S 22:33
PROVIDERS: ADMIT Family Medicine; ATTEND Family Medicine
DX: I25.110 Atherosclerotic heart disease of native coronary artery with unstable angina pectoris (principal); I34.1 Nonrheumatic mitral (valve) prolapse; E03.9 Hypothyroidism, unspecified; E78.00 Pure hypercholesterolemia, unspecified; I34.0 Nonrheumatic mitral (valve) insufficiency
CPT/HCPCS: 36415; 71010-TC; 71275-TC; 80053; 80061; 82550; 83036; 83721; 83735; 83880; 84443; 84484; 85025; 85610; 93005; 93010; 99285-25

== ENCOUNTER 2019-11-18 10:24 | Inpatient (IN) | payer OTHER, MEDICARE ==
[2019-11-18 10:29] VITALS: BMI 29.2
--- NOTE | 2019-11-18 11:03 | PDOC ---
Documentation entered by Isaac Flores SCRIBE, acting as scribe for Rohit Bhatti MD. Rohit Bhatti MD: This documentation has been prepared by the Sandra gonzalez Nirvannie, SCRIBE, under my direction and personally reviewed by me in its entirety. I confirm that the documentation accurately reflects all work, treatment, procedures, and medical decision making performed by me. History of Present Illness - General Chief Complaint: Weakness Stated Complaint: WEAKNESS SOB Time Seen by Provider: 11/18/19 10:27 History Source: Patient Exam Limitations: No Limitations - History of Present Illness Initial Comments: 11/18/19 11:01 The patient is a 79 year old female with a significant past medical history of HTN, HLD, CAD, mitral valve prolapse with mitral regurgitation, hypothyroidism who presents to the ED with several weeks of generalized weakness and shortness of breath which acutely worsened over the course of the past week. Patient notes for the past week she has been feeling increasingly weak, short of breath, and has been having chest discomfort, which she describes as a pressure-like sensation. She denies any recent fevers, chills, nausea, vomiting, diarrhea, abdominal pain, or constipation. She denies any cough or recent travel. Allergies: NKDA Social history: Former smoker approx 30 yrs ago. Primary Care Physician: Blackjack Pit Boss: 11/18/19 13:03 Case discussed with Kath (daughter) - [phone] Past History - Past Medical History Allergies/Adverse Reactions: Allergies Allergy/AdvReac Type Severity Reaction Status Date / Time No Known Allergies Allergy Verified 11/18/19 10:33 Home Medications: Ambulatory Orders Levothyroxine [Synthroid -] 75 mcg PO ASDIR 12/05/12 Nebivolol HCl [Bystolic] 2.5 mg PO DAILY 12/05/12 Rosuvastatin [Crestor -] 5 mg PO DAILY 10/05/16 Ibandronate Sodium 150 mg PO DAILY 11/18/19 Aspirin Coated [Ecotrin -] 81 mg PO DAILY tablet.ec 11/22/19 Anemia: No Asthma: No Cancer: No Cardiac Disorders: Yes (CAD) CVA: No COPD: No CHF: No Dementia: No Diabetes: No GI Disorders: No Disorders: No HTN: Yes Hypercholesterolemia: No Liver Disease: No Seizures: No Thyroid Disease: Yes - Surgical History Abdominal Surgery: No Appendectomy: No Cardiac Surgery: No Cholecystectomy: Yes Lung Surgery: No Neurologic Surgery: No Orthopedic Surgery: No - Psycho Social/Smoking Cessation Hx Smoking History: Former smoker Have you smoked in the past 12 months: No If you are a former smoker, when did you quit?: 30 yrs ago Hx Alcohol Use: No Drug/Substance Use Hx: No Substance Use Type: None Hx Substance Use Treatment: No Review of Systems - Review of Systems Able to Perform ROS?: Yes Comments:: 11/18/19 11:01 GENERAL/CONSTITUTIONAL:+Weakness. No fever or chills. HEAD, EYES, EARS, NOSE AND THROAT: No change in vision. No ear pain or discharge. No sore throat. CARDIOVASCULAR: +Chest pressure. No loss of consciousness RESPIRATORY: +SOB. No cough, wheezing, or hemoptysis. GASTROINTESTINAL: No nausea, vomiting, diarrhea or constipation. GENITOURINARY: No dysuria, frequency, or change in urination. MUSCULOSKELETAL: No joint or muscle swelling or pain. No neck or back pain. SKIN: No rash NEUROLOGIC: No vertigo, no change in strength/sensation. ENDOCRINE: No increased thirst. No abnormal weight change. HEMATOLOGIC/LYMPHATIC: No anemia, easy bleeding, or history of blood clots. ALLERGIC/IMMUNOLOGIC: No hives or skin allergy. All Other Systems: Reviewed and Negative *Physical Exam - Physical Exam 11/18/19 11:01 GENERAL: Awake, alert, and fully oriented, in no acute distress. HEAD: No signs of trauma EYES: PERRLA, EOMI, sclera anicteric, conjunctiva clear ENT: Auricles normal inspection, hearing grossly normal, nares patent, oropharynx clear without exudates. Moist mucosa NECK: Nontender, no stepoffs, Normal ROM, supple, no lymphadenopathy, JVD, or masses LUNGS: Breath sounds equal, clear to auscultation bilaterally. No wheezes, and no crackles HEART: Regular rate and rhythm, normal S1 and S2, no murmurs, rubs or gallops ABDOMEN: Soft, nontender, normoactive bowel sounds. No guarding, no rebound. No masses EXTREMITIES: Normal range of motion, no edema. No clubbing or cyanosis. No cords, erythema, or tenderness NEUROLOGICAL: Cranial nerves II through XII intact. 5/5 strength and sensation in all extremities, Normal speech, normal gait, normal cerebellar function SKIN: Warm, Dry, normal turgor, no rashes or lesions noted. Heart Score/ECG Review - History History: Moderately suspicious - Electrocardiogram EKG: Non specific repolarization disturbance - Age Age: >/= 65 - Risk Factors Risk Factors Heart Score: Yes Hx Hypercholesterolemia, Yes Hx Hypertension, Yes Hx Obesity Based on the list above the patient has:: >/=3 risk factors or Hx atherosclerotic disease - Troponin Troponin: </= normal limit - Score Heart Score - Total: 6 - ECG Impressions Comment:: 11/18/19 11:43 NSR, no AMANDEEP/STDs, TWI in V2-V6, axis wnl, intervals wnl ED Treatment Course - LABORATORY CBC & Chemistry Diagram: 11/22/19 05:50 11/22/19 05:50 Medical Decision Making - Critical Care Time Total Critical Care Time (minutes): 60 Critical Care Statement: The care of this patient involved high complexity decision making to prevent further life threatening deterioration of the patient's condition and/or to evaluate & treat vital organ system(s) failure or risk of failure. - Medical Decision Making 11/18/19 11:44 79 F with chest pain, SOB. EKG with TWIs in anterolateral leads, seen on prior E KG. Will r/o ACS. Also consider CHF. Pt with no fevers or cough to suggest infectious process. - Labs, trop, BNP - CXR - Admit tele Discharge - Discharge Information Problems reviewed: Yes Clinical Impression/Diagnosis: Chest pain Qualifiers: Chest pain type: unspecified Qualified Code(s): R07.9 - Chest pain, unspecified Condition: Improved Disposition: HOME - Admission Yes - Follow up/Referral - Patient Discharge Instructions - Post Discharge Activity
[2019-11-18 12:14] LABS: BASO % 0.2 % (0-2.0); EOS % 0.1 % (0-4.5); HEMATOCRIT 41.4 % (32.4-45.2); HEMOGLOBIN 14.2 GM/dL (10.7-15.3); LYMPH % 18.3 % (8-40); MCH 30.9 pg (25.7-33.7); MCHC 34.4 g/dl (32.0-36.0); MEAN CELL VOLUME 89.9 fl (80-96); MEAN PLT VOLUME 9.4 fl (7.5-11.1); MONO % 6.6 % (3.8-10.2); NEUT % 74.8 % (42.8-82.8); PLATELET COUNT 159 K/MM3 (134-434); WHITE BLOOD COUNT 5.2 K/mm3 (4.0-10.0)
[2019-11-18] MEDS ORDERED: PIPERACILLIN/TAZOB 4.5 GM 4.5 GM/100 ML BAG IVPB ONE (12:20)
[2019-11-18] MEDS ORDERED: VANCOMYCIN 1 GRAM (PRE-DOCKED) 1,000 MG/250 ML BAG IVPB ONE (12:20)
[2019-11-18] MEDS ORDERED: AZITHROMYCIN IVPB 500 MG/250 ML BAG IVPB ONE (12:20)
[2019-11-18] MEDS ORDERED: ACETAMINOPHEN INJECTION 100 ML IVPB ONE (12:20)
[2019-11-18 13:03] LABS: INR 1.05 (0.83-1.09); PROTHROMBIN TIME (PATIENT) 12.4 SEC (9.7-13.0)
[2019-11-18 13:31] LABS: ALBUMIN 3.5 g/dl (3.4-5.0); ALK PHOS 74 U/L (45-117); BILIRUBIN,TOTAL 0.6 mg/dL (0.2-1); BLOOD UREA NITROGEN 17.7 mg/dL (7-18); CALCIUM 8.2 mg/dL (8.5-10.1); CHLORIDE 102 mmol/L (98-107); CO2 28 mmol/L (21-32); CREATININE 0.6 mg/dL (0.55-1.3); GLUCOSE,RANDOM 104 mg/dL (74-106); SGPT/ALT 37 U/L (13-61); SODIUM 138 mmol/L (136-145); TOT PROT 6.9 g/dl (6.4-8.2)
[2019-11-18 13:32] LABS: ANION GAP 7 MMOL/L (8-16); POTASSIUM 3.9 mmol/L (3.5-5.1); SGOT/AST 43 U/L (15-37)
[2019-11-18 13:51] LABS: N-TERMINAL BNP 88.5 pg/ml (5-450)
[2019-11-18] MEDS ORDERED: ALBUTEROL SO4 2.5/IPRATROPIUM 0.5 INH SOL 3 ML VIAL.NEB. NEB SCH (16:00)
--- NOTE | 2019-11-18 17:46 | HP ---
Admitting History and Physical - Admission History of Present Illness: cough and sob progressive - Past Medical History Cardiovascular: Yes: HTN, Hyperlipdemia, Mitral Insufficiency Gastrointestinal: Yes: Constipation Endocrine: Yes: Hypothyroidism - Smoking History Smoking history: Former smoker Have you smoked in the past 12 months: No If you are a former smoker, when did you quit?: 30 yrs ago - Alcohol/Substance Use Hx Alcohol Use: No Home Medications - Allergies Allergies/Adverse Reactions: Allergies Allergy/AdvReac Type Severity Reaction Status Date / Time No Known Allergies Allergy Verified 11/18/19 10:33 - Home Medications Home Medications: Ambulatory Orders Levothyroxine [Synthroid -] 75 mcg PO ASDIR 12/05/12 Nebivolol HCl [Bystolic] 2.5 mg PO DAILY 12/05/12 Levothyroxine [Synthroid -] 88 mcg PO ASDIR 10/05/16 Rosuvastatin [Crestor -] 5 mg PO DAILY 10/05/16 Ibandronate Sodium 150 mg PO DAILY 11/18/19 Review of Systems - Review of Systems Cardiovascular: denies: Chest Pain Respiratory: reports: Cough, SOB, SOB on Exertion Physical Examination Vital Signs: Vital Signs Temperature 97.4 F L 11/18/19 17:17 Pulse Rate 66 11/18/19 17:17 Respiratory Rate 18 11/18/19 17:17 Blood Pressure 125/68 11/18/19 17:17 O2 Sat by Pulse Oximetry (%) 98 11/18/19 17:17 Cardiovascular: Yes: S1, S2 Respiratory: Yes: Rhonchi Gastrointestinal: Yes: Normal Bowel Sounds, Soft Labs: CBC, BMP 11/18/19 11:20 11/18/19 11:18 Problem List - Problems (1) Dyspnea Assessment/Plan: and cough cxr nad ct chest abx pulm and cardio consult consider covid since progressive over 48 hours Code(s): R06.00 - DYSPNEA, UNSPECIFIED (2) HTN (hypertension) Assessment/Plan: monitor bp Code(s): I10 - ESSENTIAL (PRIMARY) HYPERTENSION (3) Hyperlipidemia Code(s): E78.5 - HYPERLIPIDEMIA, UNSPECIFIED Qualifiers: Hyperlipidemia type: pure hypercholesterolemia Qualified Code(s): E78.00 - Pure hypercholesterolemia, unspecified; E78.0 - Pure hypercholesterolemia
[2019-11-18] MEDS: ASPIRIN COATED 81 MG TABLET.EC PO SCH (18:33)
[2019-11-18] MEDS: LEVOTHYROXINE NA 88 MCG TABLET (FP) PO SCH (18:34)
[2019-11-18 18:49] LABS: EOS % 0.1 % (0-4.5); HEMATOCRIT 44.5 % (32.4-45.2); HEMOGLOBIN 14.6 GM/dl (10.7-15.3); LYMPH % 20.1 % (8-40); MCH 30.3 pg (25.7-33.7); MCHC 32.7 g/dl (32.0-36.0); MEAN CELL VOLUME 92.6 fl (80-96); MEAN PLT VOLUME 9.4 fl (7.5-11.1); MONO % 7.3 % (3.8-10.2); NEUT % 72.5 % (42.8-82.8); PLATELET COUNT 167 K/MM3 (134-434); RBC 4.81 M/mm3 (3.60-5.2); RDW 12.2 % (11.6-15.6); WHITE BLOOD COUNT 4.7 K/mm3 (4.0-10.8)
[2019-11-18] MEDS: ROSUVASTATIN CA 5 MG TABLET (FP) PO SCH (21:34)
[2019-11-18] MEDS: HEPARIN NA (PORCINE) 5,000 UNITS/ML 1ML VIAL SQ SCH (21:34)
[2019-11-19] MEDS: LEVOTHYROXINE NA 88 MCG TABLET (FP) PO SCH (06:43)
[2019-11-19 07:54] LABS: BASO % 0.2 % (0-2.0); EOS % 0.3 % (0-4.5); HEMATOCRIT 42.2 % (32.4-45.2); HEMOGLOBIN 13.9 GM/dl (10.7-15.3); LYMPH % 25.4 % (8-40); MCH 30.2 pg (25.7-33.7); MCHC 32.9 g/dl (32.0-36.0); MEAN CELL VOLUME 91.7 fl (80-96); MEAN PLT VOLUME 8.5 fl (7.5-11.1); MONO % 7.5 % (3.8-10.2); NEUT % 66.6 % (42.8-82.8); PLATELET COUNT 165 K/MM3 (134-434); RDW 12.2 % (11.6-15.6)
[2019-11-19 08:29] LABS: ALBUMIN 3.6 g/dl (3.4-5.0); BILIRUBIN,TOTAL 0.7 mg/dl (0.2-1); CALCIUM 8.4 mg/dl (8.5-10); CREATININE 0.6 mg/dl (0.55-1.3); MAGNESIUM 2.1 mg/dL (1.8-2.4); POTASSIUM 3.5 mmol/L (3.5-5.1); TOT PROT 6.4 g/dl (6.4-8.2)
[2019-11-19] MEDS ORDERED: PT OWN MED DRAWER 7, Y5N ONE (09:18)
[2019-11-19] MEDS: NEBIVOLOL 2.5 MG TABLET (FP) PO SCH (09:26)
[2019-11-19] MEDS: HEPARIN NA (PORCINE) 5,000 UNITS/ML 1ML VIAL SQ SCH ×2 (09:26→21:14)
[2019-11-19] MEDS: ASPIRIN COATED 81 MG TABLET.EC PO SCH (09:26)
--- NOTE | 2019-11-19 10:00 | EKG ---
Test Reason : Blood Pressure : / mmHG Vent. Rate : 068 BPM Atrial Rate : 068 BPM P-R Int : 154 ms QRS Dur : 080 ms QT Int : 446 ms P-R-T Axes : 037 062 117 degrees QTc Int : 474 ms NORMAL SINUS RHYTHM PROLONGED QT ABNORMAL ECG WHEN COMPARED WITH ECG OF 06-OCT-2016 10:01, NONSPECIFIC T WAVE ABNORMALITY NOW EVIDENT IN INFERIOR LEADS Confirmed by BRIAN ANGELES, LINDA ([id number]) on 11/19/2019 10:00:20 AM Referred By: Confirmed By:LINDA TORRES MD
--- NOTE | 2019-11-19 10:57 | CON.PULM ---
Consult Consult Specialty:: PULMONARY Referred by:: COLBY Reason for Consultation:: WEAKNESS - History of Present Illness Chief Complaint: WEAKNESS DIMINISHED APPETITE History of Present Illness: The patient is a 79 year old female with a significant past medical history of HTN, HLD, CAD, mitral valve prolapse with mitral regurgitation, hypothyroidism who presents to the ED with several weeks of generalized weakness and shortness of breath which acutely worsened over the course of the past week. Patient notes for the past week she has been feeling increasingly weak, short of breath, and has been having chest discomfort, which she describes as a pressure-like sensation. She denies any recent fevers, chills, nausea, vomiting, diarrhea, abdominal pain, or constipation. She denies any cough or recent travel. - History Source History Provided By: Patient, Medical Record Limitations to Obtaining History: No Limitations - Past Medical History PERSONAL BANKER: No: Alzheimer's Cardio/Vascular: Yes: HTN, Hyperlipdemia, Mitral Insufficiency. No: AFIB Pulmonary: No: Asthma, COPD, O2 Dependent Gastrointestinal: Yes: Constipation Hepatobiliary: No: Cirrhosis Renal/: No: Renal Failure Reproductive: Yes: Postmenopausal Heme/Onc: Yes: Anemia Psych: No: Addictions Endocrine: Yes: Hypothyroidism - Alcohol/Substance Use Hx Alcohol Use: No - Smoking History Smoking history: Former smoker Have you smoked in the past 12 months: No If you are a former smoker, when did you quit?: 30 yrs ago - Social History ADL: Independent Place of : Other History of Recent Travel: No Home Medications - Allergies Allergies/Adverse Reactions: Allergies Allergy/AdvReac Type Severity Reaction Status Date / Time No Known Allergies Allergy Verified 11/18/19 10:33 - Home Medications Home Medications: Ambulatory Orders Levothyroxine [Synthroid -] 75 mcg PO ASDIR 12/05/12 Nebivolol HCl [Bystolic] 2.5 mg PO DAILY 12/05/12 Levothyroxine [Synthroid -] 88 mcg PO ASDIR 10/05/16 Rosuvastatin [Crestor -] 5 mg PO DAILY 10/05/16 Ibandronate Sodium 150 mg PO DAILY 11/18/19 Family Medical History Family History: Unremarkable Review of Systems - Review of Systems Constitutional: reports: Lethargy, Loss of Appetite, Weakness. denies: Chills, Fever Eyes: denies: Blurred Vision HENT: denies: Difficult Swallowing Neck: denies: Decreased ROM Cardiovascular: reports: Shortness of Breath. denies: Chest Pain Respiratory: denies: Cough, Exercise Intolerance, Hemoptysis, SOB, SOB on Exertion, Wheezing Gastrointestinal: denies: Abdominal Pain Genitourinary: denies: Burning Breasts: reports: No Symptoms Reported Musculoskeletal: reports: No Symptoms Integumentary: reports: No Symptoms Neurological: reports: Weakness Physical Exam Vital Sings: Vital Signs Temperature 98.7 F 11/19/19 05:00 Pulse Rate 79 11/19/19 05:00 Respiratory Rate 18 11/19/19 05:00 Blood Pressure 111/54 L 11/19/19 05:00 O2 Sat by Pulse Oximetry (%) 100 11/19/19 06:00 Constitutional: Yes: Calm Eyes: Yes: EOM Intact HENT: Yes: Normocephalic Neck: Yes: Trachea Midline Cardiovascular: Yes: Regular Rate and Rhythm Respiratory: Yes: CTA Bilaterally Gastrointestinal: Yes: Normal Bowel Sounds Edema: No Neurological: Yes: Alert Labs: CBC, BMP 11/19/19 06:50 11/19/19 06:50 Imaging - Results Chest X-ray: Report Reviewed, Image Reviewed Problem List - Problems (1) Weakness Code(s): R53.1 - WEAKNESS (2) Dyspnea Code(s): R06.00 - DYSPNEA, UNSPECIFIED (3) Hypothyroidism Code(s): E03.9 - HYPOTHYROIDISM, UNSPECIFIED Qualifiers: Hypothyroidism type: unspecified Qualified Code(s): E03.9 - Hypothyroidism, unspecified (4) Mitral valve prolapse syndrome Code(s): I34.1 - NONRHEUMATIC MITRAL (VALVE) PROLAPSE Assessment/Plan LOW INDEX OF SUSPICION FOR COVID-19 ETIOLOGY OF WEAKNESS TO BE DETERMINED TSH NORMAL/NOT ANEMIC LAB PARAMETERS ARE NORMAL WITH NORMAL RADIOGRAPH AND SPO2 100% ON 2L/M NASAL SEROLOGY PENDING T INVERSIONS V2-V5 ARE UNCHANGED FROM 2017/TROPS NEGATIVE WOULD CONTINUE DROPLET PRECAUTIONS FOR NOW WILL FOLLOW Vickey MCDONALD MD
--- NOTE | 2019-11-19 14:20 | CON.CARD ---
Consult Consult Specialty:: Cardiology Referred by:: Dr. Mixon Reason for Consultation:: Cardiac evaluation - History of Present Illness Chief Complaint: Shortness of breath History of Present Illness: Patient is a 79 year old female well known to our service (Patient of Dr. Govind Bryant) with underlying history of chest pain syndrome/CAD, HTN, hypercholesterolemia/mixed dyslipidemia, hypothyroidism, malignant melanoma of right ankle and osteoporosis who presented to [facility] with several weeks of generalized weakness and shortness of breath worsened over the week. Patient also complained of cough and chest tightness. She denies fever or chills. She denies paroxysmal nocturnal dyspnea or orthopnea. She denies nausea, vomiting, diarrhea or abdominal pain. She denies headache or lightheadedness. She is currently isolated for rule out COVID 19. She denies any recent travel or close contact with COVID 19 infected person. - History Source History Provided By: Patient, Medical Record Limitations to Obtaining History: No Limitations - Past Medical History Cardio/Vascular: Yes: CAD, HTN, Hyperlipdemia, Mitral Insufficiency Gastrointestinal: Yes: Constipation Endocrine: Yes: Hypothyroidism - Past Surgical History Additional Surgical History: Excision of melanoma, lymthadenectomy - Alcohol/Substance Use Hx Alcohol Use: Yes - Smoking History Smoking history: Never smoked Have you smoked in the past 12 months: No If you are a former smoker, when did you quit?: 30 yrs ago - Social History ADL: Independent History of Recent Travel: No Home Medications - Allergies Allergies/Adverse Reactions: Allergies Allergy/AdvReac Type Severity Reaction Status Date / Time No Known Allergies Allergy Verified 11/18/19 10:33 - Home Medications Home Medications: Ambulatory Orders Levothyroxine [Synthroid -] 75 mcg PO ASDIR 12/05/12 Nebivolol HCl [Bystolic] 2.5 mg PO DAILY 12/05/12 Levothyroxine [Synthroid -] 88 mcg PO ASDIR 10/05/16 Rosuvastatin [Crestor -] 5 mg PO DAILY 10/05/16 Ibandronate Sodium 150 mg PO DAILY 11/18/19 Family Medical History Family History: Denies Review of Systems - Review of Systems Constitutional: denies: Chills, Fever Cardiovascular: reports: Chest Pain, Shortness of Breath. denies: Palpitations Respiratory: reports: SOB. denies: Cough, Hemoptysis, Orthopnea, PND Gastrointestinal: denies: Abdominal Pain, Constipation, Diarrhea, Melena, Nausea, Rectal Bleeding, Vomiting Genitourinary: denies: Dysuria, Hematuria Musculoskeletal: denies: Back Pain, Joint Pain Neurological: denies: Dizziness, Headache, Seizure, Syncope Vital Signs: Vital Signs Temperature 98.0 F 11/19/19 09:00 Pulse Rate 80 11/19/19 13:00 Respiratory Rate 20 11/19/19 13:00 Blood Pressure 115/52 L 11/19/19 13:00 O2 Sat by Pulse Oximetry (%) 100 11/19/19 06:00 Neck: Yes: Supple Respiratory: Yes: CTA Bilaterally Gastrointestinal: Yes: Normal Bowel Sounds, Soft. No: Tenderness Cardiovascular: Yes: Regular Rate and Rhythm JVD: No PMI: Non-Displaced Heart Sounds: Yes: S1, S2. No: Gallop Murmur: Yes: Systolic Murmur, Grade 2 Edema: No - Other Data Labs, Other Data: CBC, BMP 11/19/19 06:50 11/19/19 06:50 INR, PTT INR 1.05 (0.83-1.09) 11/18/19 11:18 Troponin, BNP 11/18/19 11/19/19 11/19/19 17:30 01:00 06:50 Troponin I < 0.03 < 0.02 Cancelled 11/19/19 06:50 Troponin I < 0.03 Normal sinus rhythm, QTc 474 ms Echo: Report Reviewed (Done in the office (June 2019): Nomal LVEF 60-65%, mild to moderate MR, mild to moderate TR) Imaging - Results Chest X-ray: Report Reviewed (Unremarkable) EKG: Report Reviewed Problem List - Problems (1) Chest pain Code(s): R07.9 - CHEST PAIN, UNSPECIFIED (2) Dyspnea Code(s): R06.00 - DYSPNEA, UNSPECIFIED (3) HTN (hypertension) Code(s): I10 - ESSENTIAL (PRIMARY) HYPERTENSION (4) Hyperlipidemia Code(s): E78.5 - HYPERLIPIDEMIA, UNSPECIFIED Qualifiers: Hyperlipidemia type: pure hypercholesterolemia Qualified Code(s): E78.00 - Pure hypercholesterolemia, unspecified; E78.0 - Pure hypercholesterolemia (5) Hypothyroidism Code(s): E03.9 - HYPOTHYROIDISM, UNSPECIFIED Qualifiers: Hypothyroidism type: unspecified Qualified Code(s): E03.9 - Hypothyroidism, unspecified (6) Mitral regurgitation Code(s): I34.0 - NONRHEUMATIC MITRAL (VALVE) INSUFFICIENCY Qualifiers: Cardiac valve disease etiology: nonrheumatic Qualified Code(s): I34.0 - Nonrheumatic mitral (valve) insufficiency Assessment/Plan 1. Chest pain syndrome and shortness of breath, low suspicion for COVID 19 2. CAD, stable angina pectoris, probable endothelial dysfunction 3. HTN 4. Hypercholesterolemia 5. Diastolic dysfunction 6. Mitral and tricuspid valve regurgitation 7. Hypothyroidism PLAN: 1. Isolation until ruled out for COVID 19. Droplet precaution 2. Continue Bystolic 2.5 mg QD 3. Rosuvastatin 5 mg QHS 4. ASA 81 mg QD 5. Thyroid replacement therapy Further plans are to follow Diallo Colunga MD
--- NOTE | 2019-11-19 14:43 | PN ---
Physical Exam: SUBJECTIVE: Patient seen and examined at bedside. Feels very weak. Chest pressure has resolved. Able to take a deep breath but feels exhausted by it. Occasionally feels nauseous, no appetite. Last week had one episode of vomiting and one episode of diarrhea. OBJECTIVE: Vital Signs Period Temp Pulse Resp BP Sys/Cazares Pulse Ox Last 24 Hr 97.4 F-98.7 F 65-80 18-20 105-125/52-68 97-100 GENERAL: The patient is awake, alert, and fully oriented, in no acute distress. Appears fatigued. LUNGS: Bilateral crackles residential up. HEART: Regular rate and rhythm, S1, S2 ABDOMEN: Soft, nontender, nondistended EXTREMITIES: 2+ pulses, warm, well-perfused, no edema. NEUROLOGICAL: Cranial nerves II through XII grossly intact. Laboratory Results - last 24 hr 11/18/19 11/18/19 11/18/19 17:20 17:30 17:30 WBC 4.7 RBC 4.81 Hgb 14.6 Hct 44.5 MCV 92.6 MCH 30.3 MCHC 32.7 RDW 12.2 Plt Count 167 MPV 9.4 Absolute Neuts (auto) 3.5 Neutrophils % 72.5 Lymphocytes % 20.1 Monocytes % 7.3 Eosinophils % 0.1 Basophils % 0.0 Sodium Potassium Chloride Carbon Dioxide Anion Gap BUN Creatinine Est GFR (CKD-EPI)AfAm Est GFR (CKD-EPI)NonAf Random Glucose Hemoglobin A1c % Calcium Magnesium Total Bilirubin AST ALT Alkaline Phosphatase Creatine Kinase 24 L Troponin I < 0.03 Total Protein Albumin Triglycerides Cholesterol Total LDL Cholesterol HDL Cholesterol TSH COVID-19 (SAMANTHA) Influenza A (Rapid) Influenza B (Rapid) RSV Rapid 11/18/19 11/19/19 11/19/19 21:00 01:00 06:50 WBC 5.0 RBC 4.60 Hgb 13.9 Hct 42.2 MCV 91.7 MCH 30.2 MCHC 32.9 RDW 12.2 Plt Count 165 MPV 8.5 Absolute Neuts (auto) 3.3 Neutrophils % 66.6 Lymphocytes % 25.4 Monocytes % 7.5 Eosinophils % 0.3 Basophils % 0.2 Sodium Potassium Chloride Carbon Dioxide Anion Gap BUN Creatinine Est GFR (CKD-EPI)AfAm Est GFR (CKD-EPI)NonAf Random Glucose Hemoglobin A1c % Calcium Magnesium Total Bilirubin AST ALT Alkaline Phosphatase Creatine Kinase Troponin I < 0.02 Total Protein Albumin Triglycerides Cholesterol Total LDL Cholesterol HDL Cholesterol TSH COVID-19 (SAMANTHA) Cancelled Influenza A (Rapid) Influenza B (Rapid) RSV Rapid 11/19/19 11/19/19 11/19/19 06:50 06:50 06:50 WBC RBC Hgb Hct MCV MCH MCHC RDW Plt Count MPV Absolute Neuts (auto) Neutrophils % Lymphocytes % Monocytes % Eosinophils % Basophils % Sodium 137 Potassium 3.5 Chloride 98 Carbon Dioxide 30 Anion Gap 9 BUN 18.0 Creatinine 0.6 Est GFR (CKD-EPI)AfAm 101.90 Est GFR (CKD-EPI)NonAf 87.92 Random Glucose 105 Hemoglobin A1c % 5.9 Calcium 8.4 L Magnesium 2.1 Total Bilirubin 0.7 AST 28 ALT 28 Alkaline Phosphatase 60 Creatine Kinase Cancelled Troponin I Cancelled < 0.03 Total Protein 6.4 Albumin 3.6 Triglycerides 104 Cholesterol 94 Total LDL Cholesterol 42 HDL Cholesterol 31 L TSH 1.46 COVID-19 (SAMANTHA) Influenza A (Rapid) Influenza B (Rapid) RSV Rapid 11/19/19 11/19/19 11/19/19 06:50 11:00 11:00 WBC RBC Hgb Hct MCV MCH MCHC RDW Plt Count MPV Absolute Neuts (auto) Neutrophils % Lymphocytes % Monocytes % Eosinophils % Basophils % Sodium Potassium Chloride Carbon Dioxide Anion Gap BUN Creatinine Est GFR (CKD-EPI)AfAm Est GFR (CKD-EPI)NonAf Random Glucose Hemoglobin A1c % Calcium Magnesium Total Bilirubin AST ALT Alkaline Phosphatase Creatine Kinase 21 L Troponin I Total Protein Albumin Triglycerides Cholesterol Total LDL Cholesterol HDL Cholesterol TSH COVID-19 (SAMANTHA) Influenza A (Rapid) Negative Influenza B (Rapid) Negative RSV Rapid Negative Active Medications Generic Name Dose Route Start Last Admin Trade Name Freq PRN Reason Stop Dose Admin Aspirin 81 mg 11/18/19 16:00 11/19/19 09:26 Ecotrin - PO 81 mg DAILY JUSTEN Administration Heparin Sodium (Porcine) 5,000 unit 11/18/19 22:00 11/19/19 09:26 Heparin - SQ 5,000 unit BID JUSTEN Administration Levothyroxine Sodium 88 mcg 11/18/19 07:00 11/19/19 06:43 Synthroid - PO 88 mcg 0700 JUSTEN Administration Nebivolol 2.5 mg 11/19/19 10:00 11/19/19 09:26 Bystolic - PO 2.5 mg DAILY JUSTEN Administration Rosuvastatin Calcium 5 mg 11/18/19 22:00 11/18/19 21:34 Crestor - PO 5 mg HS JUSTEN Administration Assessment & Plan 79 year-old female with a PMH significant for HTN, HLD, chest pain syndrome/CAD, hypothyroidism, malignant melanoma of right ankle and osteoporosis. Admitted for generalized weakness and SOB. Generalized weakness Shortness of breath --11/17 CXR: increased interstitial markings; 11/18 CXR: no change --rales on exam --satting 100% on 2L --rapid flu, rapid RSV negative; COVID19 pending --repeat CXR in am Chest pain syndrome --chronic in nature, followed by Dr. Bryant Coronary artery disease Stable angina pedtoris --continue ASA, Bystolic, Crestor --seen and evaluated by cardiology, no further cardiac workup Hypertension --continue Bystolic Hyperlipidemia --continue Crestor Hypothyroidism --continue levothyroxine Malignant melanoma --stable FEN Fluids: PO intake adequate Electrolytes: replete as indicated Nutrition: low sodium DVT prophylaxis: subq heparin Dispo: continues to require inpatient care. Full code. Visit type - Emergency Visit Emergency Visit: Yes ED Registration Date: 11/18/19 Care time: The patient presented to the Emergency Department on the above date and was hospitalized for further evaluation of their emergent condition. - New Patient This patient is new to me today: Yes Date on this admission: 11/19/19 - Critical Care Critical Care patient: Yes Total Critical Care Time (in minutes): 45 Critical Care Statement: The care of this patient involved high complexity decision making to prevent further life threatening deterioration of the pa evin's condition and/or to evaluate & treat vital organ system(s) failure or risk of failure.
[2019-11-19] MEDS: ROSUVASTATIN CA 5 MG TABLET (FP) PO SCH (21:14)
[2019-11-20] MEDS: LEVOTHYROXINE NA 88 MCG TABLET (FP) PO SCH (06:48)
[2019-11-20 07:46] LABS: BASO % 0.1 % (0-2.0); HEMATOCRIT 40.8 % (32.4-45.2); HEMOGLOBIN 13.4 GM/dl (10.7-15.3); LYMPH % 33.4 % (8-40); MCH 30.1 pg (25.7-33.7); MCHC 32.9 g/dl (32.0-36.0); MEAN CELL VOLUME 91.3 fl (80-96); MEAN PLT VOLUME 8.9 fl (7.5-11.1); MONO % 8.2 % (3.8-10.2); NEUT % 57.3 % (42.8-82.8); PLATELET COUNT 192 K/MM3 (134-434); RBC 4.46 M/mm3 (3.60-5.2); WHITE BLOOD COUNT 4.1 K/mm3 (4.0-10.8)
[2019-11-20 07:56] LABS: ALBUMIN 3.4 g/dl (3.4-5.0); BILIRUBIN,TOTAL 0.7 mg/dl (0.2-1); CALCIUM 8.5 mg/dl (8.5-10); CREATININE 0.5 mg/dl (0.55-1.3); MAGNESIUM 2.1 mg/dL (1.8-2.4); POTASSIUM 3.4 mmol/L (3.5-5.1); TOT PROT 6.1 g/dl (6.4-8.2)
[2019-11-20] MEDS ORDERED: PT OWN MED DRAWER 7, Y5N ONE (08:37)
[2019-11-20] MEDS: ASPIRIN COATED 81 MG TABLET.EC PO SCH (09:04)
[2019-11-20] MEDS: HEPARIN NA (PORCINE) 5,000 UNITS/ML 1ML VIAL SQ SCH ×2 (09:04→21:09)
[2019-11-20] MEDS: POTASSIUM CHLORIDE TABS 20 MEQ TABLET.ER (FP) PO SCH ×2 (09:04→15:22)
[2019-11-20] MEDS: NEBIVOLOL 2.5 MG TABLET (FP) PO SCH (09:05)
--- NOTE | 2019-11-20 09:52 | PN ---
Progress Note, Physician History of Present Illness: Last office visit 10/28/2019, COVID PCR +. Not hypoxic. - Current Medication List Current Medications: Active Medications Aspirin (Ecotrin -) 81 mg PO DAILY [facility] Last Admin: 11/20/19 09:04 Dose: 81 mg Documented by: Heparin Sodium (Porcine) (Heparin -) 5,000 unit SQ BID [facility] Last Admin: 11/20/19 09:04 Dose: 5,000 unit Documented by: Levothyroxine Sodium (Synthroid -) 88 mcg PO 0700 [facility] Last Admin: 11/20/19 06:48 Dose: 88 mcg Documented by: Nebivolol (Bystolic -) 2.5 mg PO DAILY [facility] Last Admin: 11/20/19 09:05 Dose: 2.5 mg Documented by: Potassium Chloride (K-Dur -) 40 meq PO Q6H [facility] Stop: 11/20/19 14:46 Last Admin: 11/20/19 09:04 Dose: 40 meq Documented by: Rosuvastatin Calcium (Crestor -) 5 mg PO HS [facility] Last Admin: 11/19/19 21:14 Dose: 5 mg Documented by: - Objective Vital Signs: Vital Signs Temperature 98.5 F 11/20/19 09:19 Pulse Rate 73 11/20/19 09:19 Respiratory Rate 18 11/20/19 09:19 Blood Pressure 118/59 L 11/20/19 09:19 O2 Sat by Pulse Oximetry (%) 100 11/20/19 09:19 Constitutional: Yes: Other (Exam per pulm physician noted) Labs: CBC, BMP 11/20/19 06:50 11/20/19 06:50 INR, PTT INR 1.05 (0.83-1.09) 11/18/19 11:18 - ....Imaging Chest X-ray: Report Reviewed (NAD) Problem List - Problems (1) COVID-19 Code(s): U07.1 - (2) Chest pain Code(s): R07.9 - CHEST PAIN, UNSPECIFIED Qualifiers: Chest pain type: unspecified Qualified Code(s): R07.9 - Chest pain, unspecified (3) Dyspnea Code(s): R06.00 - DYSPNEA, UNSPECIFIED Qualifiers: Dyspnea type: shortness of breath Qualified Code(s): R06.02 - Shortness of breath; R06.00 - Dyspnea, unspecified; R06.01 - Orthopnea (4) Weakness Code(s): R53.1 - WEAKNESS (5) HTN (hypertension) Code(s): I10 - ESSENTIAL (PRIMARY) HYPERTENSION Qualifiers: Hypertension type: essential hypertension Qualified Code(s): I10 - Essential (primary) hypertension (6) Hyperlipidemia Code(s): E78.5 - HYPERLIPIDEMIA, UNSPECIFIED Qualifiers: Hyperlipidemia type: pure hypercholesterolemia Qualified Code(s): E78.00 - Pure hypercholesterolemia, unspecified; E78.0 - Pure hypercholesterolemia (7) Hypothyroidism Code(s): E03.9 - HYPOTHYROIDISM, UNSPECIFIED Qualifiers: Hypothyroidism type: unspecified Qualified Code(s): E03.9 - Hypothyroidism, unspecified (8) Mitral valve prolapse syndrome Code(s): I34.1 - NONRHEUMATIC MITRAL (VALVE) PROLAPSE Assessment/Plan Echocardiography performed July 06, 2019 revealed normal left ventricular size and systolic function with estimated LVEF between 60-65%, normal right ventricular size and systolic function, aortic valve leaflet sclerosis without leaflet restriction, mild to moderate mitral valve regurgitation, mild tricuspid valve regurgitation with calculated RVSP of 26 mmHg. 1. Chest pain syndrome and shortness of breath with + COVID 19 PCR 2. CAD, stable angina pectoris, probable endothelial dysfunction 3. HTN 4. Hypercholesterolemia 5. Diastolic dysfunction 6. Mitral and tricuspid valve regurgitation 7. Hypothyroidism PLAN: 1. COVID 19 + PCR. Droplet precaution, neg flu and RSV 2. Continue Bystolic 2.5 mg QD 3. Rosuvastatin 5 mg QHS 4. ASA 81 mg QD 5. Thyroid replacement therapy 6. Stress testing as outpatient
--- NOTE | 2019-11-20 10:42 | PN ---
Progress Note (short form) - Note Progress Note: PULMONARY PATIENT EXAMINED IN ROOM USING FULL PROTECTIVE EQUIPMENT DENIES COUGH/CP/SORE THROAT NO FEVER/VSS ANICTEROC CLEAR LUNG JAY S1S2 BS+ NO EDEMA LABS/MEDS/NOTES/IMAGES/MICRO REVIEWED COVID PENDING INFLU NEGATIVE/RSV NEGATIVE (1) Weakness Code(s): R53.1 - WEAKNESS (2) Dyspnea Code(s): R06.00 - DYSPNEA, UNSPECIFIED (3) Hypothyroidism Code(s): E03.9 - HYPOTHYROIDISM, UNSPECIFIED Qualifiers: Hypothyroidism type: unspecified Qualified Code(s): E03.9 - Hypothyroidism, unspecified (4) Mitral valve prolapse syndrome Code(s): I34.1 - NONRHEUMATIC MITRAL (VALVE) PROLAPSE LOW INDEX OF SUSPICION FOR COVID-19 ETIOLOGY OF WEAKNESS TO BE DETERMINED TSH NORMAL/NOT ANEMIC LAB PARAMETERS ARE NORMAL WITH NORMAL RADIOGRAPH AND SPO2 100% ON 2L/M NASAL SEROLOGY PENDING T INVERSIONS V2-V5 ARE UNCHANGED FROM 2017/TROPS NEGATIVE WOULD CONTINUE DROPLET PRECAUTIONS FOR NOW Vickey MCDONALD MD Problem List - Problems (1) Weakness Code(s): R53.1 - WEAKNESS (2) Dyspnea Code(s): R06.00 - DYSPNEA, UNSPECIFIED (3) Hypothyroidism Code(s): E03.9 - HYPOTHYROIDISM, UNSPECIFIED Qualifiers: Hypothyroidism type: unspecified Qualified Code(s): E03.9 - Hypothyroidism, unspecified (4) Mitral valve prolapse syndrome Code(s): I34.1 - NONRHEUMATIC MITRAL (VALVE) PROLAPSE
--- NOTE | 2019-11-20 16:24 | PN ---
Physical Exam: SUBJECTIVE: Patient seen and examined at bedside. Still feels overwhelming fatigue. "I'm tired of being tired." Denies cough, SOB, fever. OBJECTIVE: Vital Signs Period Temp Pulse Resp BP Sys/Cazares Pulse Ox Last 24 Hr 98.1 F-98.8 F 59-82 16-20 103-124/50-73 100-100 GENERAL: The patient is awake, alert, and fully oriented, in no acute distress. Appears fatigued. LUNGS: Bilateral crackles assisted up. HEART: Regular rate and rhythm, S1, S2 ABDOMEN: Soft, nontender, nondistended EXTREMITIES: 2+ pulses, warm, well-perfused, no edema. NEUROLOGICAL: Cranial nerves II through XII grossly intact. Laboratory Results - last 24 hr 11/18/19 11/20/19 11/20/19 21:00 06:50 06:50 WBC 4.1 RBC 4.46 Hgb 13.4 Hct 40.8 MCV 91.3 MCH 30.1 MCHC 32.9 RDW 12.0 Plt Count 192 MPV 8.9 Absolute Neuts (auto) 2.4 Neutrophils % 57.3 Lymphocytes % 33.4 Monocytes % 8.2 Eosinophils % 1.0 Basophils % 0.1 Sodium 137 Potassium 3.4 L Chloride 100 Carbon Dioxide 28 Anion Gap 9 BUN 20.0 H Creatinine 0.5 L Est GFR (CKD-EPI)AfAm 108.20 Est GFR (CKD-EPI)NonAf 93.36 Random Glucose 111 H Calcium 8.5 Magnesium 2.1 Total Bilirubin 0.7 AST 23 ALT 25 Alkaline Phosphatase 56 Total Protein 6.1 L Albumin 3.4 Urine Color Urine Appearance Urine pH Urine Protein Urine Glucose (UA) Urine Ketones Urine Blood Urine Nitrite Urine Bilirubin Urine Urobilinogen Ur Leukocyte Esterase Urine RBC Urine WBC Urine Bacteria COVID-19 PCR positive COVID-19 (SAMANTHA) Cancelled 11/20/19 11:55 WBC RBC Hgb Hct MCV MCH MCHC RDW Plt Count MPV Absolute Neuts (auto) Neutrophils % Lymphocytes % Monocytes % Eosinophils % Basophils % Sodium Potassium Chloride Carbon Dioxide Anion Gap BUN Creatinine Est GFR (CKD-EPI)AfAm Est GFR (CKD-EPI)NonAf Random Glucose Calcium Magnesium Total Bilirubin AST ALT Alkaline Phosphatase Total Protein Albumin Urine Color Yellow Urine Appearance Clear Urine pH 6.5 Urine Protein Negative Urine Glucose (UA) Negative Urine Ketones Negative Urine Blood Negative Urine Nitrite Negative Urine Bilirubin Negative Urine Urobilinogen 0.2 Ur Leukocyte Esterase 1+ Urine RBC 0-2 Urine WBC 2-5 Urine Bacteria Few COVID-19 PCR COVID-19 (SAMANTHA) Active Medications Generic Name Dose Route Start Last Admin Trade Name Kobe PRN Reason Stop Dose Admin Aspirin 81 mg 11/18/19 16:00 11/20/19 09:04 Ecotrin - PO 81 mg DAILY JUSTEN Administration Heparin Sodium (Porcine) 5,000 unit 11/18/19 22:00 11/20/19 09:04 Heparin - SQ 5,000 unit BID JUSTEN Administration Levothyroxine Sodium 88 mcg 11/18/19 07:00 11/20/19 06:48 Synthroid - PO 88 mcg 0700 JUSTEN Administration Nebivolol 2.5 mg 11/19/19 10:00 11/20/19 09:05 Bystolic - PO 2.5 mg DAILY JUSTEN Administration Rosuvastatin Calcium 5 mg 11/18/19 22:00 11/19/19 21:14 Crestor - PO 5 mg HS JUSTEN Administration ASSESSMENT/PLAN: 79 year-old female with a PMH significant for HTN, HLD, chest pain syndrome/CAD, hypothyroidism, malignant melanoma of right ankle and osteoporosis. Admitted for generalized weakness and SOB. COVID+ COVID19 Positive --generalized weakness, SOB, afebrile, no cough --WBC trending down 5.2-->4.1 --continues to sat 100% on 2L Chest pain syndrome --chronic in nature, followed by Dr. Bryant Coronary artery disease Stable angina pedtoris --continue ASA, Bystolic, Crestor --seen and evaluated by cardiology, no further cardiac workup Hypertension --continue Bystolic Hyperlipidemia --continue Crestor Hypothyroidism --continue levothyroxine Malignant melanoma --stable FEN Fluids: PO intake adequate Electrolytes: replete as indicated Nutrition: low sodium DVT prophylaxis: subq heparin Dispo: continues to require inpatient care. Full code. Visit type - Emergency Visit Emergency Visit: Yes ED Registration Date: 11/18/19 Care time: The patient presented to the Emergency Department on the above date and was hospitalized for further evaluation of their emergent condition. - New Patient This patient is new to me today: No - Critical Care Critical Care patient: Yes Total Critical Care Time (in minutes): 45 Critical Care Statement: The care of this patient involved high complexity decision making to prevent further life threatening deterioration of the patient's condition and/or to evaluate & treat vital organ system(s) failure or risk of failure.
[2019-11-20] MEDS: ROSUVASTATIN CA 5 MG TABLET (FP) PO SCH (21:09)
[2019-11-21 00:11] LABS: CK-MM 100 % (97-100)
[2019-11-21] MEDS: LEVOTHYROXINE NA 88 MCG TABLET (FP) PO SCH (06:26)
--- NOTE | 2019-11-21 08:09 | PN ---
Progress Note, Physician Chief Complaint: Remains SOB during ambulation but less today. Feels she is improving History of Present Illness: 79 year-old female with a PMH significant for HTN, HLD, chest pain syndrome/CAD, hypothyroidism, malignant melanoma of right ankle and osteoporosis. Admitted for generalized weakness and SOB. COVID+ - Current Medication List Current Medications: Active Medications Aspirin (Ecotrin -) 81 mg PO DAILY [facility] Last Admin: 11/20/19 09:04 Dose: 81 mg Documented by: Heparin Sodium (Porcine) (Heparin -) 5,000 unit SQ BID [facility] Last Admin: 11/20/19 21:09 Dose: 5,000 unit Documented by: Levothyroxine Sodium (Synthroid -) 88 mcg PO 0700 [facility] Last Admin: 11/21/19 06:26 Dose: 88 mcg Documented by: Nebivolol (Bystolic -) 2.5 mg PO DAILY [facility] Last Admin: 11/20/19 09:05 Dose: 2.5 mg Documented by: Rosuvastatin Calcium (Crestor -) 5 mg PO HS [facility] Last Admin: 11/20/19 21:09 Dose: 5 mg Documented by: - Objective Vital Signs: Vital Signs Temperature 97.8 F 11/21/19 06:00 Pulse Rate 65 11/21/19 06:00 Respiratory Rate 20 11/21/19 06:00 Blood Pressure 117/65 11/21/19 06:00 O2 Sat by Pulse Oximetry (%) 100 11/20/19 21:00 Constitutional: Yes: Well Nourished, No Distress, Calm Eyes: Yes: WNL, Conjunctiva Clear HENT: Yes: WNL, Atraumatic, Normocephalic Neck: Yes: WNL, Supple, Trachea Midline Cardiovascular: Yes: WNL, Regular Rate and Rhythm Respiratory: Yes: WNL, Regular, Diminished (at bases) Gastrointestinal: Yes: WNL, Normal Bowel Sounds ...Rectal Exam: Yes: Deferred Genitourinary: Yes: WNL Breast(s): Yes: WNL Musculoskeletal: Yes: WNL Extremities: Yes: WNL Edema: No Peripheral Pulses WNL: No Integumentary: Yes: WNL ...Motor Strength: WNL Psychiatric: Yes: WNL Labs: CBC, BMP 11/20/19 06:50 11/20/19 06:50 INR, PTT INR 1.05 (0.83-1.09) 11/18/19 11:18 - ....Imaging Chest X-ray: Image Reviewed (no infiltrates/effusions) Problem List - Problems (1) Prophylactic measure Assessment/Plan: FEN Fluids: adequate PO intake Electrolytes: monitor & replete as needed Nutrition: low sodium diet DVT minimal risk asa Dispo Maintain as inpatient full code discharge planning-possible dc tomorrow if remains afebrile- is on self- isolation with suspected COVID Code(s): Z29.9 - ENCOUNTER FOR PROPHYLACTIC MEASURES, UNSPECIFIED (2) COVID-19 Assessment/Plan: COVID + maintain SPO2 > 88% strict airborne/droplet precautions Code(s): U07.1 - (3) HTN (hypertension) Assessment/Plan: normotensive c/w bystolic Code(s): I10 - ESSENTIAL (PRIMARY) HYPERTENSION Qualifiers: Hypertension type: essential hypertension Qualified Code(s): I10 - Essential (primary) hypertension (4) Hyperlipidemia Assessment/Plan: c/w crestor Code(s): E78.5 - HYPERLIPIDEMIA, UNSPECIFIED Qualifiers: Hyperlipidemia type: pure hypercholesterolemia Qualified Code(s): E78.00 - Pure hypercholesterolemia, unspecified; E78.0 - Pure hypercholesterolemia (5) Hypothyroidism Assessment/Plan: c/w synthroid Code(s): E03.9 - HYPOTHYROIDISM, UNSPECIFIED Qualifiers: Hypothyroidism type: unspecified Qualified Code(s): E03.9 - Hypothyroidism, unspecified (6) Mitral regurgitation Code(s): I34.0 - NONRHEUMATIC MITRAL (VALVE) INSUFFICIENCY Qualifiers: Cardiac valve disease etiology: nonrheumatic Qualified Code(s): I34.0 - Nonrheumatic mitral (valve) insufficiency (7) CAD (coronary artery disease) Assessment/Plan: c/w asa, BB, crestor Code(s): I25.10 - ATHSCL HEART DISEASE OF [place] CORONARY ARTERY W/O ANG PCTRS Visit type - Emergency Visit Emergency Visit: Yes ED Registration Date: 11/18/19 Care time: The patient presented to the Emergency Department on the above date and was hospitalized for further evaluation of their emergent condition. - New Patient This patient is new to me today: Yes Date on this admission: 11/21/19 - Critical Care Critical Care patient: No - Discharge Referral Referred to [facility] No
[2019-11-21 09:53] LABS: BASO % 0.4 % (0-2.0); EOS % 0.8 % (0-4.5); HEMATOCRIT 39.3 % (32.4-45.2); HEMOGLOBIN 13.2 GM/dL (10.7-15.3); LYMPH % 33.1 % (8-40); MCH 30.3 pg (25.7-33.7); MCHC 33.6 g/dl (32.0-36.0); MEAN CELL VOLUME 90.3 fl (80-96); MEAN PLT VOLUME 8.4 fl (7.5-11.1); MONO % 9.1 % (3.8-10.2); NEUT % 56.6 % (42.8-82.8); PLATELET COUNT 216 K/MM3 (134-434); RBC 4.35 M/mm3 (3.60-5.2); RDW 12.7 % (11.6-15.6); WHITE BLOOD COUNT 4.2 K/mm3 (4.0-10.0)
--- NOTE | 2019-11-21 10:06 | PN ---
Progress Note (short form) - Note Progress Note: History of Present Illness: Afebrile, no cardiac events CBC, BMP 11/21/19 09:10 Active Medications Aspirin (Ecotrin -) 81 mg PO DAILY [facility] Last Admin: 11/20/19 09:04 Dose: 81 mg Documented by: Heparin Sodium (Porcine) (Heparin -) 5,000 unit SQ BID [facility] Last Admin: 11/20/19 21:09 Dose: 5,000 unit Documented by: Levothyroxine Sodium (Synthroid -) 88 mcg PO 0700 [facility] Last Admin: 11/21/19 06:26 Dose: 88 mcg Documented by: Nebivolol (Bystolic -) 2.5 mg PO DAILY [facility] Last Admin: 11/20/19 09:05 Dose: 2.5 mg Documented by: Rosuvastatin Calcium (Crestor -) 5 mg PO HS [facility] Last Admin: 11/20/19 21:09 Dose: 5 mg Documented by: Vital Signs Temperature 97.8 F 11/21/19 06:00 Pulse Rate 65 11/21/19 06:00 Respiratory Rate 20 11/21/19 06:00 Blood Pressure 117/65 11/21/19 06:00 O2 Sat by Pulse Oximetry (%) 100 11/20/19 21:00 - ....Imaging Chest X-ray: Report Reviewed (NAD) Problem List - Problems (1) COVID-19 Code(s): U07.1 - (2) Chest pain Code(s): R07.9 - CHEST PAIN, UNSPECIFIED Qualifiers: Chest pain type: unspecified Qualified Code(s): R07.9 - Chest pain, unspecified (3) Dyspnea Code(s): R06.00 - DYSPNEA, UNSPECIFIED Qualifiers: Dyspnea type: shortness of breath Qualified Code(s): R06.02 - Shortness of breath; R06.00 - Dyspnea, unspecified; R06.01 - Orthopnea (4) Weakness Code(s): R53.1 - WEAKNESS (5) HTN (hypertension) Code(s): I10 - ESSENTIAL (PRIMARY) HYPERTENSION Qualifiers: Hypertension type: essential hypertension Qualified Code(s): I10 - Essential (primary) hypertension (6) Hyperlipidemia Code(s): E78.5 - HYPERLIPIDEMIA, UNSPECIFIED Qualifiers: Hyperlipidemia type: pure hypercholesterolemia Qualified Code(s): E78.00 - Pure hypercholesterolemia, unspecified; E78.0 - Pure hypercholesterolemia (7) Hypothyroidism Code(s): E03.9 - HYPOTHYROIDISM, UNSPECIFIED Qualifiers: Hypothyroidism type: unspecified Qualified Code(s): E03.9 - Hypothyroidism, unspecified (8) Mitral valve prolapse syndrome Code(s): I34.1 - NONRHEUMATIC MITRAL (VALVE) PROLAPSE Assessment/Plan Echocardiography performed July 06, 2019 revealed normal left ventricular size and systolic function with estimated LVEF between 60-65%, normal right ventricular size and systolic function, aortic valve leaflet sclerosis without leaflet restriction, mild to moderate mitral valve regurgitation, mild tricuspid valve regurgitation with calculated RVSP of 26 mmHg. 1. Chest pain syndrome and shortness of breath with + COVID 19 PCR 2. CAD, stable angina pectoris, probable endothelial dysfunction 3. HTN 4. Hypercholesterolemia 5. Diastolic dysfunction 6. Mitral and tricuspid valve regurgitation 7. Hypothyroidism PLAN: Same 1. COVID 19 + PCR. Droplet precaution, neg flu and RSV 2. Continue Bystolic 2.5 mg QD 3. Rosuvastatin 5 mg QHS 4. ASA 81 mg QD 5. Thyroid replacement therapy 6. Stress testing as outpatient
[2019-11-21 10:13] LABS: ALBUMIN 3.2 g/dl (3.4-5.0); BILIRUBIN,TOTAL 0.4 mg/dL (0.2-1); BLOOD UREA NITROGEN 19.7 mg/dL (7-18); CALCIUM 8.7 mg/dL (8.5-10.1); CREATININE 0.7 mg/dL (0.55-1.3); MAGNESIUM 2.2 mg/dL (1.8-2.4); POTASSIUM 4.3 mmol/L (3.5-5.1); TOT PROT 6.5 g/dl (6.4-8.2)
[2019-11-21] MEDS ORDERED: PT OWN MED DRAWER 7, Y5N ONE (10:20)
[2019-11-21] MEDS: HEPARIN NA (PORCINE) 5,000 UNITS/ML 1ML VIAL SQ SCH ×2 (10:24→21:40)
[2019-11-21] MEDS: NEBIVOLOL 2.5 MG TABLET (FP) PO SCH (10:24)
[2019-11-21] MEDS: ASPIRIN COATED 81 MG TABLET.EC PO SCH (10:24)
--- NOTE | 2019-11-21 12:37 | CON.ID ---
Consult - History of Present Illness History of Present Illness: 79 y.o. female with PMH of CAD, mitral regurgitation, HTN, HLD, hypothyroidism presented with c/o of severe generalized weakness/fatigue that gradually wo rsened and development of SOB over the past week. She denied cough but had chest pain with inhalation. Pt denies any known sick contacts or recent travel. In the ER she was noted to have normal vitals, no acute findings on imaging. Influenza/RSV rapid negative. Covid-19 PCR positive. Currently she remains afebrile, stating she is feeling better. Denies SOB/CP/abd pain/n/v/d/dysuria. - Past Medical History [employer]: No: Alzheimer's Cardio/Vascular: Yes: CAD, HTN, Hyperlipdemia, Mitral Insufficiency Pulmonary: No: Asthma, COPD, O2 Dependent Gastrointestinal: Yes: Constipation Hepatobiliary: No: Cirrhosis Renal/: No: Renal Failure Psych: No: Addictions Endocrine: Yes: Hypothyroidism - Past Surgical History Additional Surgical History: Excision of melanoma, lymthadenectomy - Alcohol/Substance Use Hx Alcohol Use: Yes - Smoking History Smoking history: Never smoked Have you smoked in the past 12 months: No If you are a former smoker, when did you quit?: 30 yrs ago - Social History ADL: Independent History of Recent Travel: No Home Medications - Allergies Allergies/Adverse Reactions: Allergies Allergy/AdvReac Type Severity Reaction Status Date / Time No Known Allergies Allergy Verified 11/18/19 10:33 - Home Medications Home Medications: Ambulatory Orders Levothyroxine [Synthroid -] 75 mcg PO ASDIR 12/05/12 Nebivolol HCl [Bystolic] 2.5 mg PO DAILY 12/05/12 Levothyroxine [Synthroid -] 88 mcg PO ASDIR 10/05/16 Rosuvastatin [Crestor -] 5 mg PO DAILY 10/05/16 Ibandronate Sodium 150 mg PO DAILY 11/18/19 Review of Systems - Review of Systems Constitutional: reports: Weakness. denies: Chills, Diaphoresis, Fever, Lethargy, Loss of Appetite, Malaise, Night Sweats, Unintentional Wgt. Loss, Other Eyes: denies: No Symptoms, Blind Spots, Blurred Vision, Double Vision, Eye Pain, Floaters, Photophobia, Recent Change in Vision, Other HENT: reports: No Symptoms. denies: Difficult Swallowing, Ear Discharge, Ear Pain, Epistaxis, Gingival Bleeding, Hearing Loss, Mouth Swelling, Nasal Congestion, Ocular Prosthesis, Throat Pain, Toothache, Ringing in Ears, Other Neck: reports: No Symptoms. denies: Decreased ROM, Lumps, Pain on Movement, Stiffness, Swollen Glands, Tenderness, Other Cardiovascular: reports: No Symptoms. denies: Chest Pain, Edema, Palpitations, Shortness of Breath, Other Respiratory: reports: No Symptoms. denies: Cough, Exercise Intolerance, Hemoptysis, Orthopnea, PND, Snoring, SOB, SOB on Exertion, Wheezing, Other Gastrointestinal: reports: No Symptoms. denies: Abdominal Pain, Bloating, Constipation, Diarrhea, Dysphagia, Indigestion, Melena, Nausea, Rectal Bleeding, Vomiting, Vomiting Blood, Other Genitourinary: reports: No Symptoms. denies: Burning, Discharge, Dysuria, Flank Pain, Frequency, Hematuria, Incontinence, Lesions, Menses, Pain, Testicular Mass, Testicular Pain, Testicular Swelling, Urgency, Vaginal Bleeding, Other Musculoskeletal: reports: No Symptoms. denies: Back Pain, Crepitus, Decreased ROM, Extremity Pain, Joint Pain, Joint Swelling, Muscle Pain, Muscle Cramps, Muscle Weakness, Other Integumentary: reports: No Symptoms. denies: Blister, Bruising, Change in Color, Eczema, Erythema, Incision, Lesions, Lump, Pallor, Pruritis, Rash, Wound, Other Neurological: reports: No Symptoms. denies: Change in LOC, Change in Speech, Confusion, Dizziness, Headache, Incoordination, Numbness, Parasthesia, Pre- Existing Deficit, Seizure, Syncope, Tremors, Unsteady Gait, Weakness, Other Endocrine: reports: No Symptoms. denies: Excessive Sweating, Flushing, Increased Hunger, Increased Thirst, Intolerance to Cold, Intolerance to Heat, Unexplained Weight Gain, Unexplained Weight Loss, Other Hematology/Lymphatic: reports: No Symptoms. denies: Easily Bruised, Excessive Bleeding, Swollen Glands, Other Psychiatric: reports: No Symptoms. denies: Altered Sleep Pattern, Anxiety, Depression, Hallucinations, Panic, Paranoia, Suicidal, Other Physical Exam Vital Signs: Vital Signs Temperature 97.8 F 11/21/19 06:00 Pulse Rate 65 11/21/19 06:00 Respiratory Rate 20 11/21/19 06:00 Blood Pressure 117/65 11/21/19 06:00 O2 Sat by Pulse Oximetry (%) 100 11/20/19 21:00 Constitutional: Yes: No Distress, Calm Eyes: Yes: Conjunctiva Clear, EOM Intact HENT: Yes: Atraumatic Neck: Yes: Supple, Trachea Midline Cardiovascular: Yes: Regular Rate and Rhythm Respiratory: Yes: CTA Bilaterally, On Nasal O2 Gastrointestinal: Yes: Normal Bowel Sounds, Soft Renal/: Yes: WNL Musculoskeletal: Yes: WNL Extremities: Yes: WNL Integumentary: Yes: WNL Neurological: Yes: Alert, Oriented Psychiatric: Yes: Alert Labs: CBC, BMP 11/21/19 09:10 11/21/19 09:10 Abnormal Lab Results 11/21/19 09:10 Anion Gap 6 L BUN 19.7 H Random Glucose 110 H Albumin 3.2 L Laboratory Last Values WBC 4.2 K/mm3 (4.0-10.0) 11/21/19 09:10 RBC 4.35 M/mm3 (3.60-5.2) 11/21/19 09:10 Hgb 13.2 GM/dL (10.7-15.3) 11/21/19 09:10 Hct 39.3 % (32.4-45.2) 11/21/19 09:10 MCV 90.3 fl (80-96) 11/21/19 09:10 MCH 30.3 pg (25.7-33.7) 11/21/19 09:10 MCHC 33.6 g/dl (32.0-36.0) 11/21/19 09:10 RDW 12.7 % (11.6-15.6) 11/21/19 09:10 Plt Count 216 K/MM3 (134-434) D 11/21/19 09:10 MPV 8.4 fl (7.5-11.1) D 11/21/19 09:10 Absolute Neuts (auto) 2.4 K/mm3 (1.5-8.0) 11/21/19 09:10 Neutrophils % 56.6 % (42.8-82.8) D 11/21/19 09:10 Lymphocytes % 33.1 % (8-40) D 11/21/19 09:10 Monocytes % 9.1 % (3.8-10.2) 11/21/19 09:10 Eosinophils % 0.8 % (0-4.5) D 11/21/19 09:10 Basophils % 0.4 % (0-2.0) 11/21/19 09:10 Nucleated RBC % 0 % (0-0) 11/21/19 09:10 PT with INR 12.40 SEC (9.7-13.0) 11/18/19 11:18 INR 1.05 (0.83-1.09) 11/18/19 11:18 PTT (Actin FS) 32.0 SECONDS (25.2-36.5) 11/18/19 11:18 Sodium 141 mmol/L (136-145) 11/21/19 09:10 Potassium 4.3 mmol/L (3.5-5.1) 11/21/19 09:10 Chloride 107 mmol/L (98-107) 11/21/19 09:10 Carbon Dioxide 28 mmol/L (21-32) 11/21/19 09:10 Anion Gap 6 MMOL/L (8-16) L 11/21/19 09:10 BUN 19.7 mg/dL (7-18) H 11/21/19 09:10 Creatinine 0.7 mg/dL (0.55-1.3) 11/21/19 09:10 Est GFR (CKD-EPI)AfAm 96.86 11/21/19 09:10 Est GFR (CKD-EPI)NonAf 83.57 11/21/19 09:10 Random Glucose 110 mg/dL (74-106) H 11/21/19 09:10 Hemoglobin A1c % 5.9 % (4.2-6.3) 11/19/19 06:50 Calcium 8.7 mg/dL (8.5-10.1) 11/21/19 09:10 Magnesium 2.2 mg/dL (1.8-2.4) 11/21/19 09:10 Total Bilirubin 0.4 mg/dL (0.2-1) 11/21/19 09:10 AST 20 U/L (15-37) 11/21/19 09:10 ALT 28 U/L (13-61) 11/21/19 09:10 Alkaline Phosphatase 65 U/L (45-117) 11/21/19 09:10 Creatine Kinase 21 U/L (26-192) L 11/19/19 06:50 Creatine Kinase Cancelled 11/19/19 06:50 CK-BB (CK-1) 0 % TOTAL (0) 11/19/19 06:50 CK/CKMB % Calc 0 % (0-3) 11/19/19 06:50 Troponin I < 0.03 ng/ml (0.00-0.05) 11/19/19 06:50 Troponin I Cancelled 11/19/19 06:50 B-Natriuretic Peptide 88.5 pg/ml (5-450) 11/18/19 11:18 Total Protein 6.5 g/dl (6.4-8.2) 11/21/19 09:10 Albumin 3.2 g/dl (3.4-5.0) L 11/21/19 09:10 Triglycerides 104 mg/dl (0-150) 11/19/19 06:50 Cholesterol 94 mg/dl (50-200) 11/19/19 06:50 Total LDL Cholesterol 42 mg/dL (5-100) 11/19/19 06:50 HDL Cholesterol 31 mg/dl (40-60) L 11/19/19 06:50 TSH 1.46 uIU/ml (0.358-3.74) 11/19/19 06:50 Urine Color Yellow 11/20/19 11:55 Urine Appearance Clear 11/20/19 11:55 Urine pH 6.5 (4.5-8) 11/20/19 11:55 Urine Protein Negative (NEGATIVE) 11/20/19 11:55 Urine Glucose (UA) Negative (NEGATIVE) 11/20/19 11:55 Urine Ketones Negative (NEGATIVE) 11/20/19 11:55 Urine Blood Negative (NEGATIVE) 11/20/19 11:55 Urine Nitrite Negative (NEGATIVE) 11/20/19 11:55 Urine Bilirubin Negative (NEGATIVE) 11/20/19 11:55 Urine Urobilinogen 0.2 (0.2-1.0) 11/20/19 11:55 Ur Leukocyte Esterase 1+ (NEGATIVE) 11/20/19 11:55 Urine RBC 0-2 /hpf (0-4) 11/20/19 11:55 Urine WBC 2-5 (NEGATIVE) 11/20/19 11:55 Urine Bacteria Few /hpf (NEGATIVE) 11/20/19 11:55 COVID-19 PCR positive 11/18/19 21:00 COVID-19 (SAMANTHA) Cancelled 11/18/19 21:00 Influenza A (Rapid) Negative (Negative) 11/19/19 11:00 Influenza B (Rapid) Negative (Negative) 11/19/19 11:00 RSV Rapid Negative (Negative) 11/19/19 11:00 Imaging - Results Chest X-ray: Report Reviewed Problem List - Problems (1) COVID-19 Code(s): U07.1 - (2) Chest pain Code(s): R07.9 - CHEST PAIN, UNSPECIFIED Qualifiers: Chest pain type: unspecified Qualified Code(s): R07.9 - Chest pain, unspecified (3) Weakness Code(s): R53.1 - WEAKNESS (4) HTN (hypertension) Code(s): I10 - ESSENTIAL (PRIMARY) HYPERTENSION Qualifiers: Hypertension type: essential hypertension Qualified Code(s): I10 - Essential (primary) hypertension (5) Hyperlipidemia Code(s): E78.5 - HYPERLIPIDEMIA, UNSPECIFIED Qualifiers: Hyperlipidemia type: pure hypercholesterolemia Qualified Code(s): E78.00 - Pure hypercholesterolemia, unspecified; E78.0 - Pure hypercholesterolemia (6) Hypothyroidism Code(s): E03.9 - HYPOTHYROIDISM, UNSPECIFIED Qualifiers: Hypothyroidism type: unspecified Qualified Code(s): E03.9 - Hypothyroidism, unspecified (7) Mitral regurgitation Code(s): I34.0 - NONRHEUMATIC MITRAL (VALVE) INSUFFICIENCY Qualifiers: Cardiac valve disease etiology: nonrheumatic Qualified Code(s): I34.0 - Nonrheumatic mitral (valve) insufficiency (8) Mitral valve prolapse syndrome Code(s): I34.1 - NONRHEUMATIC MITRAL (VALVE) PROLAPSE Assessment/Plan 79 y.o. female with PMH of CAD, mitral regurgitation, HTN, HLD, hypothyroidism presented with c/o of severe generalized weakness/fatigue that gradually worsened and development of SOB over the past week COVID-19 + CAD HTN HLD Hypothyroidism -- Pt appears to be improving, less weak, remains afebrile -- maintain maintain isolation precautions/droplet/contact -- continue current management -- Cardiology following Will follow Thank you
--- NOTE | 2019-11-21 13:17 | PN ---
Progress Note (short form) - Note Progress Note: PULMONARY Feeling better. Denies shortness of breath. No fevers recorded. Not hypoxic. Vital Signs Period Temp Pulse Resp BP Sys/Cazares Pulse Ox Last 24 Hr 97.7 F-97.9 F 60-67 18-20 113-122/57-66 100-100 Gen: NAD at rest Heart: RRR Lung: decreased breath sounds at the bases Abd: soft, nontender Ext: no edema CBC, BMP 11/21/19 09:10 11/21/19 09:10 Active Medications Aspirin (Ecotrin -) 81 mg PO DAILY [facility] Last Admin: 11/21/19 10:24 Dose: 81 mg Documented by: Heparin Sodium (Porcine) (Heparin -) 5,000 unit SQ BID [facility] Last Admin: 11/21/19 10:24 Dose: 5,000 unit Documented by: Levothyroxine Sodium (Synthroid -) 88 mcg PO 0700 [facility] Last Admin: 11/21/19 06:26 Dose: 88 mcg Documented by: Nebivolol (Bystolic -) 2.5 mg PO DAILY [facility] Last Admin: 11/21/19 10:24 Dose: 2.5 mg Documented by: Rosuvastatin Calcium (Crestor -) 5 mg PO HS [facility] Last Admin: 11/20/19 21:09 Dose: 5 mg Documented by: A/P COVID-19 CAD HTN Hyperlipidemia Hypothyroidism - symptoms improving, can d/c home from pulmonary standpoint with self quaranti ne
[2019-11-21] MEDS: ROSUVASTATIN CA 5 MG TABLET (FP) PO SCH (21:40)
[2019-11-22] MEDS: LEVOTHYROXINE NA 88 MCG TABLET (FP) PO SCH (06:09)
[2019-11-22 07:06] LABS: BASO % 0.6 % (0-2.0); EOS % 0.8 % (0-4.5); HEMATOCRIT 36.8 % (32.4-45.2); HEMOGLOBIN 12.8 GM/dL (10.7-15.3); LYMPH % 36.6 % (8-40); MCH 31.5 pg (25.7-33.7); MCHC 34.8 g/dl (32.0-36.0); MEAN CELL VOLUME 90.4 fl (80-96); MEAN PLT VOLUME 8.6 fl (7.5-11.1); MONO % 7.9 % (3.8-10.2); NEUT % 54.1 % (42.8-82.8); PLATELET COUNT 211 K/MM3 (134-434); RBC 4.07 M/mm3 (3.60-5.2); RDW 12.9 % (11.6-15.6); WHITE BLOOD COUNT 4.5 K/mm3 (4.0-10.0)
--- NOTE | 2019-11-22 07:43 | DS ---
Physical Exam: SUBJECTIVE: Patient seen and examined OBJECTIVE: Vital Signs Period Temp Pulse Resp BP Sys/Cazares Pulse Ox Last 24 Hr 97.6 F-98.9 F 60-89 16-20 101-124/57-69 95-100 PHYSICAL EXAM Constitutional: Yes: Well Nourished, No Distress, Calm Eyes: Yes: WNL, Conjunctiva Clear HENT: Yes: WNL, Atraumatic, Normocephalic Neck: Yes: WNL, Supple, Trachea Midline Cardiovascular: Yes: WNL, Regular Rate and Rhythm Respiratory: Yes: WNL, Regular, Diminished (at bases) Gastrointestinal: Yes: WNL, Normal Bowel Sounds ...Rectal Exam: Yes: Deferred Genitourinary: Yes: WNL Breast(s): Yes: WNL Musculoskeletal: Yes: WNL Extremities: Yes: WNL Edema: No Peripheral Pulses WNL: No Integumentary: Yes: WNL ...Motor Strength: WNL Psychiatric: Yes: WNL LABS Laboratory Results - last 24 hr 11/21/19 11/21/19 11/22/19 09:10 09:10 05:50 WBC 4.2 4.5 RBC 4.35 4.07 Hgb 13.2 12.8 Hct 39.3 36.8 MCV 90.3 90.4 MCH 30.3 31.5 MCHC 33.6 34.8 RDW 12.7 12.9 Plt Count 216 D 211 MPV 8.4 D 8.6 Absolute Neuts (auto) 2.4 2.4 Neutrophils % 56.6 D 54.1 Lymphocytes % 33.1 D 36.6 Monocytes % 9.1 7.9 Eosinophils % 0.8 D 0.8 Basophils % 0.4 0.6 Nucleated RBC % 0 0 Sodium 141 Potassium 4.3 Chloride 107 Carbon Dioxide 28 Anion Gap 6 L BUN 19.7 H Creatinine 0.7 Est GFR (CKD-EPI)AfAm 96.86 Est GFR (CKD-EPI)NonAf 83.57 Random Glucose 110 H Calcium 8.7 Magnesium 2.2 Total Bilirubin 0.4 AST 20 ALT 28 Alkaline Phosphatase 65 Total Protein 6.5 Albumin 3.2 L HOSPITAL COURSE: Date of Admission:11/18/19 Date of Discharge: 11/22/19 - Problems (1) Prophylactic measure Assessment/Plan: FEN Fluids: adequate PO intake Electrolytes:WNL Nutrition: low sodium diet DVT minimal risk asa Dispo Maintain as inpatient full code discharge to home- on self-isolation with suspected COVID Code(s): Z29.9 - ENCOUNTER FOR PROPHYLACTIC MEASURES, UNSPECIFIED (2) COVID-19 Assessment/Plan: COVID + maintain SPO2 > 88% strict airborne/droplet precautions Code(s): U07.1 - (3) HTN (hypertension) Assessment/Plan: normotensive c/w bystolic Code(s): I10 - ESSENTIAL (PRIMARY) HYPERTENSION Qualifiers: Hypertension type: essential hypertension Qualified Code(s): I10 - Essential (primary) hypertension (4) Hyperlipidemia Assessment/Plan: c/w crestor Code(s): E78.5 - HYPERLIPIDEMIA, UNSPECIFIED Qualifiers: Hyperlipidemia type: pure hypercholesterolemia Qualified Code(s): E78.00 - Pure hypercholesterolemia, unspecified; E78.0 - Pure hypercholesterolemia (5) Hypothyroidism Assessment/Plan: c/w synthroid Code(s): E03.9 - HYPOTHYROIDISM, UNSPECIFIED Qualifiers: Hypothyroidism type: unspecified Qualified Code(s): E03.9 - Hypothyroidism, unspecified (6) Mitral regurgitation Code(s): I34.0 - NONRHEUMATIC MITRAL (VALVE) INSUFFICIENCY Qualifiers: Cardiac valve disease etiology: nonrheumatic Qualified Code(s): I34.0 - Nonrheumatic mitral (valve) insufficiency (7) CAD (coronary artery disease) Assessment/Plan: c/w asa, BB, crestor Code(s): I25.10 - ATHSCL HEART DISEASE OF [place] CORONARY ARTERY W/O ANG PCTRS Medically dc to home with instructions from [facility] for quarantine restrictions Minutes to complete discharge: 35 Discharge Summary Problems reviewed: Yes Reason For Visit: CHEST PAIN Current Active Problems CAD (coronary artery disease) (Acute) COVID-19 (Acute) Chest pain (Acute) Dyspnea (Acute) Prophylactic measure (Acute) Weakness (Acute) Condition: Improved - Instructions Diet, Activity, Other Instructions: DISCHARGE YOUR VISIT You came to the hospital because were short of breath and have fever and cough. You tested positive for COVID-19 the pizarro virus. MEDICATIONS Please continue to take your home medications as prescribed. There was no changes DIET Continue your home diet ADDITIONAL CARE Please make an appointment to see your primary care provider, 2 week from today. ADDITIONAL INFORMATION Please call 911 or come directly to the emergency department if you experience unusual headache, vision change, shortness of breath, chest pain, numbness, tin gling, loss of alertness/awareness, loss of function, unusual bleeding or any alarming symptoms. Thank you for allowing me to care for you. Abdullahi Ackerman, [facility], [facility] [phone] Referrals: Nabil Mixon MD [Primary Care Provider] - Disposition: HOME - Home Medications Comprehensive Discharge Medication List: Ambulatory Orders Levothyroxine [Synthroid -] 75 mcg PO ASDIR 12/05/12 Nebivolol HCl [Bystolic] 2.5 mg PO DAILY 12/05/12 Levothyroxine [Synthroid -] 88 mcg PO ASDIR 10/05/16 Rosuvastatin [Crestor -] 5 mg PO DAILY 10/05/16 Ibandronate Sodium 150 mg PO DAILY 11/18/19 Problem List - Problems (1) Prophylactic measure Code(s): Z29.9 - ENCOUNTER FOR PROPHYLACTIC MEASURES, UNSPECIFIED (2) COVID-19 Code(s): U07.1 - (3) HTN (hypertension) Code(s): I10 - ESSENTIAL (PRIMARY) HYPERTENSION Qualifiers: Hypertension type: essential hypertension Qualified Code(s): I10 - Essential (primary) hypertension (4) Hyperlipidemia Code(s): E78.5 - HYPERLIPIDEMIA, UNSPECIFIED Qualifiers: Hyperlipidemia type: pure hypercholesterolemia Qualified Code(s): E78.00 - Pure hypercholesterolemia, unspecified; E78.0 - Pure hypercholesterolemia (5) Hypothyroidism Code(s): E03.9 - HYPOTHYROIDISM, UNSPECIFIED Qualifiers: Hypothyroidism type: unspecified Qualified Code(s): E03.9 - Hypothyroidism, unspecified (6) Mitral regurgitation Code(s): I34.0 - NONRHEUMATIC MITRAL (VALVE) INSUFFICIENCY Qualifiers: Cardiac valve disease etiology: nonrheumatic Qualified Code(s): I34.0 - Nonrheumatic mitral (valve) insufficiency (7) CAD (coronary artery disease) Code(s): I25.10 - ATHSCL HEART DISEASE OF [place] CORONARY ARTERY W/O ANG PCTRS This patient is new to me today: No Emergency Visit: Yes ED Registration Date: 11/18/19 Care time: The patient presented to the Emergency Department on the above date and was hospitalized for further evaluation of their emergent condition. Critical Care patient: No - Discharge Referral Referred to [facility] No
[2019-11-22] MEDS ORDERED: PT OWN MED DRAWER 7, Y5N ONE (08:39)
[2019-11-22 08:46] LABS: ALBUMIN 3.2 g/dl (3.4-5.0); BILIRUBIN,TOTAL 0.4 mg/dL (0.2-1); BLOOD UREA NITROGEN 14.7 mg/dL (7-18); CALCIUM 8.3 mg/dL (8.5-10.1); CREATININE 0.7 mg/dL (0.55-1.3); MAGNESIUM 0.8 mg/dL (1.8-2.4); POTASSIUM 4.6 mmol/L (3.5-5.1); TOT PROT 6.3 g/dl (6.4-8.2)
[2019-11-22] MEDS: ASPIRIN COATED 81 MG TABLET.EC PO SCH (09:10)
[2019-11-22] MEDS: NEBIVOLOL 2.5 MG TABLET (FP) PO SCH (09:10)
[2019-11-22] MEDS: HEPARIN NA (PORCINE) 5,000 UNITS/ML 1ML VIAL SQ SCH (09:10)
--- NOTE | 2019-11-22 09:27 | PN ---
Progress Note (short form) - Note Progress Note: History of Present Illness: stable cardiawise, to be discharged CBC, BMP 11/22/19 05:50 11/22/19 05:50 Active Medications Aspirin (Ecotrin -) 81 mg PO DAILY [facility] Last Admin: 11/22/19 09:10 Dose: 81 mg Documented by: Heparin Sodium (Porcine) (Heparin -) 5,000 unit SQ BID [facility] Last Admin: 11/22/19 09:10 Dose: 5,000 unit Documented by: Levothyroxine Sodium (Synthroid -) 88 mcg PO 0700 [facility] Last Admin: 11/22/19 06:09 Dose: 88 mcg Documented by: Nebivolol (Bystolic -) 2.5 mg PO DAILY [facility] Last Admin: 11/22/19 09:10 Dose: 2.5 mg Documented by: Rosuvastatin Calcium (Crestor -) 5 mg PO HS [facility] Last Admin: 11/21/19 21:40 Dose: 5 mg Documented by: Vital Signs Temperature 97.9 F 11/22/19 06:00 Pulse Rate 82 11/22/19 09:23 Respiratory Rate 20 11/22/19 06:00 Blood Pressure 117/69 11/22/19 06:00 O2 Sat by Pulse Oximetry (%) 99 11/22/19 09:23 Problem List - Problems (1) COVID-19 Code(s): U07.1 - (2) Chest pain Code(s): R07.9 - CHEST PAIN, UNSPECIFIED Qualifiers: Chest pain type: unspecified Qualified Code(s): R07.9 - Chest pain, unspecified (3) Dyspnea Code(s): R06.00 - DYSPNEA, UNSPECIFIED Qualifiers: Dyspnea type: shortness of breath Qualified Code(s): R06.02 - Shortness of breath; R06.00 - Dyspnea, unspecified; R06.01 - Orthopnea (4) Weakness Code(s): R53.1 - WEAKNESS (5) HTN (hypertension) Code(s): I10 - ESSENTIAL (PRIMARY) HYPERTENSION Qualifiers: Hypertension type: essential hypertension Qualified Code(s): I10 - Essential (primary) hypertension (6) Hyperlipidemia Code(s): E78.5 - HYPERLIPIDEMIA, UNSPECIFIED Qualifiers: Hyperlipidemia type: pure hypercholesterolemia Qualified Code(s): E78.00 - Pure hypercholesterolemia, unspecified; E78.0 - Pure hypercholesterolemia (7) Hypothyroidism Code(s): E03.9 - HYPOTHYROIDISM, UNSPECIFIED Qualifiers: Hypothyroidism type: unspecified Qualified Code(s): E03.9 - Hypothyroidism, unspecified (8) Mitral valve prolapse syndrome Code(s): I34.1 - NONRHEUMATIC MITRAL (VALVE) PROLAPSE Assessment/Plan Echocardiography performed July 06, 2019 revealed normal left ventricular size and systolic function with estimated LVEF between 60-65%, normal right ventricular size and systolic function, aortic valve leaflet sclerosis without leaflet restriction, mild to moderate mitral valve regurgitation, mild tricuspid valve regurgitation with calculated RVSP of 26 mmHg. 1. Chest pain syndrome and shortness of breath with + COVID 19 PCR 2. CAD, stable angina pectoris, probable endothelial dysfunction 3. HTN 4. Hypercholesterolemia 5. Diastolic dysfunction 6. Mitral and tricuspid valve regurgitation 7. Hypothyroidism PLAN: Cont same: 1. COVID 19 + PCR. Droplet precaution, neg flu and RSV 2. Continue Bystolic 2.5 mg QD 3. Rosuvastatin 5 mg QHS 4. ASA 81 mg QD 5. Thyroid replacement therapy 6. Stress testing as outpatient
[2019-11-22 11:04] VITALS: BP 110/60; PULSE 65; TEMP 97.8
--- NOTE | 2019-11-22 13:41 | PN ---
Progress Note (short form) - Note Progress Note: PULMONARY Feeling better. Denies shortness of breath. No fevers recorded. Not hypoxic. Vital Signs Period Temp Pulse Resp BP Sys/Cazares Pulse Ox Last 24 Hr 97.8 F-98.9 F 60-89 16-20 101-124/59-69 96-99 Gen: NAD at rest Heart: RRR Lung: decreased breath sounds at the bases Abd: soft, nontender Ext: no edema CBC, BMP 11/22/19 05:50 11/22/19 05:50 Active Medications Aspirin (Ecotrin -) 81 mg PO DAILY [facility] Last Admin: 11/22/19 09:10 Dose: 81 mg Documented by: Heparin Sodium (Porcine) (Heparin -) 5,000 unit SQ BID [facility] Last Admin: 11/22/19 09:10 Dose: 5,000 unit Documented by: Levothyroxine Sodium (Synthroid -) 88 mcg PO 0700 [facility] Last Admin: 11/22/19 06:09 Dose: 88 mcg Documented by: Nebivolol (Bystolic -) 2.5 mg PO DAILY [facility] Last Admin: 11/22/19 09:10 Dose: 2.5 mg Documented by: Rosuvastatin Calcium (Crestor -) 5 mg PO HS [facility] Last Admin: 11/21/19 21:40 Dose: 5 mg Documented by: A/P COVID-19 CAD HTN Hyperlipidemia Hypothyroidism - symptoms improving, can d/c home from pulmonary standpoint with self quaranti ne
== END 2019-11-22 14:30 | disposition home or self-care (01) | DRG 204 ==
LOC: SUPCPDRO 10:24 → JER 10:24 → JERBED 14:12 → FM/S 17:00 → J4S 11-20 19:53
PROVIDERS: ADMIT Family Medicine; ATTEND Nurse Practitioner Acute Care
DX: R06.02 Shortness of breath (principal); R06.09 Other forms of dyspnea; R53.1 Weakness; R05 Cough; I25.10 Atherosclerotic heart disease of native coronary artery without angina pectoris; I10 Essential (primary) hypertension; E78.5 Hyperlipidemia, unspecified; B97.29 Other coronavirus as the cause of diseases classified elsewhere; R07.89 Other chest pain; E03.9 Hypothyroidism, unspecified; I34.0 Nonrheumatic mitral (valve) insufficiency; I36.1 Nonrheumatic tricuspid (valve) insufficiency
CPT/HCPCS: 36415; 71045-TC-FY; 80053; 80061; 81003; 81015; 82550; 82552; 83036; 83721; 83735; 83880; 84443; 84484; 85025; 85610; 85730; 87086; 87804; 87807; 93005; 93010; 94761; 99285-25; J1644; U0001